=== PATIENT | male | born 1950 | race Caucasian/White ===

== ENCOUNTER 2019-11-25 07:19 | Inpatient (IN) | payer MEDICARE, BC ==
[~2019-11-25] VITALS: Ht 185.4 cm; Wt 65.9 kg
[2019-11-25] VITALS (27 sets, daily range): BP systolic 68–134; BP diastolic 35–72
[2019-11-25 07:59] LABS: BASO % 1 % (0-3); EOS % 0 % (0-3); HEMATOCRIT 37.5 % (39.0-53.0); HEMOGLOBIN 11.3 g/dL (13.0-17.5); LYMPH # 0.7 x10^3/uL (1.0-4.8); LYMPH % 11 % (24-48); MEAN CORPUSCULAR HEMOGLOBIN 28 pg (25-35); MEAN CORPUSCULAR HGB CONC 30 g/dL (31-37); MEAN CORPUSCULAR VOLUME 91 fL (79-100); MONO # 0.4 x10^3/uL (0.0-1.1); MONO % 7 % (0-9); NEUT # 4.9 x10^3/uL (1.8-7.7); NEUT % 81 % (31-73); PLATELET COUNT 137 x10^3/uL (140-400); RED CELL DISTRIBUTION WIDTH 19.6 % (11.5-14.5)
[2019-11-25 08:10] LABS: BASE EXCESS COOX -13 mmol/L (-3-3); HCO3 COOX 18 mmol/L (21-28); METHEMOGLOBIN 0.4 % (0.0-1.9); OXYHEMOGLOBIN 94.9 %; PO2 COOX 115 mmHg (65-108); SAT O2 COOX 96 % (92-99)
[2019-11-25 08:11] LABS: CALCIUM 7.9 mg/dL (8.5-10.1); GFR 9.3; POTASSIUM 5.2 mmol/L (3.5-5.1)
--- NOTE | 2019-11-25 08:24 | RAD ---
EXAM: PORTABLE CHEST 1V INDICATION: Respiratory distress. TECHNIQUE: Single AP view COMPARISON: None FINDINGS: Right chest multichamber pacemaker is present. The heart is enlarged The great vessels show aortic calcification and otherwise appear unremarkable. There is no hilar or mediastinal mass identified. Lungs show central pulmonary vascular congestion. These are more in the left greater than right bilateral perihilar distribution. There is no pleural effusion or pneumothorax. There are no significant osseous abnormalities. IMPRESSION: Pulmonary vascular congestion and cardiomegaly. Findings suspicious for early interstitial edema. Electronically signed by: Narendra Brito MD (11/25/2019 8:21 AM) [id number]
--- NOTE | 2019-11-25 08:26 | EKG ---
[facility] [address] [place] [address] Test Date: 2019-11-25 Test Time: 07:29:31 Pat Name: AMY GOVEA Department: Room: Gender: M Accounts Payable Lead: : 1950 Requested By: QUITA TOMLINSON Order Number: [id number] Reading MD: Measurements Intervals [place] Rate: 66 P: GA: QRS: -67 QRSD: 156 T: 97 QT: 486 QTc: 512 Interpretive Statements IRREGULAR RHYTHM, NO P-WAVE FOUND ABNORMAL LEFT AXIS DEVIATION NON SPECIFIC INTRAVENTRICULAR BLOCK QRS(T) CONTOUR ABNORMALITY CONSISTENT WITH ANTERIOR INFARCT PROBABLY OLD CONSISTENT WITH INFEROLATERAL INFARCT PROBABLY OLD ABNORMAL ECG RI6.01 No previous ECG available for comparison
[2019-11-25 08:27] LABS: ALBUMIN/GLOBULIN RATIO 0.9 (1.0-1.7); TOTAL BILIRUBIN 0.5 mg/dL (0.2-1.0); TOTAL PROTEIN 6.2 g/dL (6.4-8.2)
[2019-11-25 08:34] LABS: INFLUENZA A PATIENT NEGATIVE (NEGATIVE); INFLUENZA B PATIENT NEGATIVE (NEGATIVE)
[2019-11-25 08:35] LABS: PCO2 COOX 67 mmHg (35-46)
--- NOTE | 2019-11-25 08:52 | PHYS DOC ---
Past Medical History Past Medical History: CHF, COPD, Depression, Renal Failure, Vascular Disease Additional Past Medical Histor: Aortic aneurysm repair, on dialysis Past Surgical History: Other Additional Past Surgical Histo: dialysis shunt left arm, aortic aneurysm repair;' right lobectomy Smoking Status: Unknown if ever smoked Alcohol Use: None Adult General Chief Complaint Chief Complaint: SHORTNESS OF BREATH HPI HPI Patient is a 69-year-old chronically ill male with multiple medical problems who presents today with altered mental status and respiratory distress. The patient has not had any fever. Family states that he last had dialysis this past Sunday. He missed dialysis yesterday because he fell and hurt his arm and didn't feel like going. He was scheduled to go today at 2 PM but his symptoms worsened. Patient's family states he normally gets his care at [facility]] Review of Systems Review of Systems Review of systems is unobtainable secondary to altered mental status Current Medications Current Medications Current Medications Medications (Trade) Dose Ordered Sig/Garrick Start Time Stop Time Status Last Admin Dose Admin Calcium Gluconate (Calcium Gluconate) 1,000 mg 1X ONCE 11/25/19 09:00 11/25/19 09:01 DC 11/25/19 09:46 1,000 MG Sodium Bicarbonate (Sodium Bicarb Adult 8.4% Syr) 50 meq 1X ONCE 11/25/19 09:00 11/25/19 09:01 DC 11/25/19 09:46 50 MEQ Allergies Allergies Allergies Coded Allergies Type Severity Reaction Last Updated Verified prednisone Allergy Unknown 11/25/19 Yes vancomycin Allergy Unknown 11/25/19 Yes Physical Exam Physical Exam Constitutional: Frail, elderly and acutely ill[] HENT: Normocephalic, atraumatic, bilateral external ears normal, oropharynx mo ist, no oral exudates, nose normal. [] Eyes: PERRLA, EOMI, conjunctiva normal, no discharge. [] Neck: Obvious jugular venous distention[] Cardiovascular:Heart rate regular rhythm, no murmur pacer left chest [] Lungs & Thorax: Diminished breath sounds with bibasilar rales[] Abdomen: Bowel sounds normal, soft, no tenderness, no masses, no pulsatile masses. [] Skin: Warm, dry, no erythema, no rash. [] Back: No tenderness, no CVA tenderness. [] Extremities: No tenderness, no cyanosis, no clubbing, ROM intact, no edema. [] Neurologic: Alert but confused, normal motor function, normal sensory function, no focal deficits noted. [] Psychologic: Unable to assess. [] Current Patient Data Vital Signs Vital Signs Date Time Temp Pulse Resp B/P (MAP) Pulse Ox O2 Delivery O2 Flow Rate FiO2 11/25/19 09:12 96 BiPAP/CPAP 11/25/19 09:06 62 20 115/61 (79) 11/25/19 08:20 4.0 11/25/19 07:19 97.6 97.6 Lab Values Laboratory Tests Test 11/25/19 07:35 11/25/19 07:39 11/25/19 07:45 White Blood Count 6.0 x10^3/uL (4.0-11.0) Red Blood Count 4.10 x10^6/uL (4.30-5.70) L Hemoglobin 11.3 g/dL (13.0-17.5) L Hematocrit 37.5 % (39.0-53.0) L Mean Corpuscular Volume 91 fL (79-100) Mean Corpuscular Hemoglobin 28 pg (25-35) Mean Corpuscular Hemoglobin Concent 30 g/dL (31-37) L Red Cell Distribution Width 19.6 % (11.5-14.5) H Platelet Count 137 x10^3/uL (140-400) L Neutrophils (%) (Auto) 81 % (31-73) H Lymphocytes (%) (Auto) 11 % (24-48) L Monocytes (%) (Auto) 7 % (0-9) Eosinophils (%) (Auto) 0 % (0-3) Basophils (%) (Auto) 1 % (0-3) Neutrophils # (Auto) 4.9 x10^3/uL (1.8-7.7) Lymphocytes # (Auto) 0.7 x10^3/uL (1.0-4.8) L Monocytes # (Auto) 0.4 x10^3/uL (0.0-1.1) Eosinophils # (Auto) 0.0 x10^3/uL (0.0-0.7) Basophils # (Auto) 0.0 x10^3/uL (0.0-0.2) Sodium Level 142 mmol/L (136-145) Potassium Level 5.2 mmol/L (3.5-5.1) H Chloride Level 103 mmol/L (98-107) Carbon Dioxide Level 23 mmol/L (21-32) Anion Gap 16 (6-14) H Blood Urea Nitrogen 48 mg/dL (8-26) H Creatinine 6.0 mg/dL (0.7-1.3) H Estimated GFR (Cockcroft-Gault) 9.3 BUN/Creatinine Ratio 8 (6-20) Glucose Level 99 mg/dL (70-99) Lactic Acid Level 2.9 mmol/L (0.4-2.0) H Calcium Level 7.9 mg/dL (8.5-10.1) L Total Bilirubin 0.5 mg/dL (0.2-1.0) Aspartate Amino Transferase (AST) 24 U/L (15-37) Alanine Aminotransferase (ALT) 13 U/L (16-63) L Alkaline Phosphatase 134 U/L (46-116) H Troponin I Quantitative 0.113 ng/mL (0.000-0.055) HD-Gjm-M-Type Natriuretic Peptide > 99496 pg/mL (0-124) H Total Protein 6.2 g/dL (6.4-8.2) L Albumin 3.0 g/dL (3.4-5.0) L Albumin/Globulin Ratio 0.9 (1.0-1.7) L Influenza Type A Antigen Negative (NEGATIVE) Influenza Type B Antigen Negative (NEGATIVE) Group A Streptococcus Rapid Negative (NEGATIVE) O2 Saturation 96 % (92-99) Arterial Blood pH 7.05 (7.35-7.45) *L Arterial Blood pCO2 at Patient Temp 67 mmHg (35-46) *H Arterial Blood pO2 at Patient Temp 115 mmHg (65-108) H Arterial Blood HCO3 18 mmol/L (21-28) L Arterial Blood Base Excess -13 mmol/L (-3-3) L Oxyhemoglobin 94.9 % Methemoglobin 0.4 % (0.0-1.9) Carbon Monoxide, Quantitative 1.0 % (0.0-1.9) FiO2 4l n.c. Laboratory Tests 11/25/19 07:35 Laboratory Tests 11/25/19 07:35 EKG EKG [] Interpretation Time: EKG: Paced rhythm rate of 70 Radiology/Procedures Radiology/Procedures []PROCEDURE: PORTABLE CHEST 1V EXAM: PORTABLE CHEST 1V INDICATION: Respiratory distress. TECHNIQUE: Single AP view COMPARISON: None FINDINGS: Right chest multichamber pacemaker is present. The heart is enlarged The great vessels show aortic calcification and otherwise appear unremarkable. There is no hilar or mediastinal mass identified. Lungs show central pulmonary vascular congestion. These are more in the left greater than right bilateral perihilar distribution. There is no pleural effusion or pneumothorax. There are no significant osseous abnormalities. IMPRESSION: Pulmonary vascular congestion and cardiomegaly. Findings suspicious for early interstitial edema. Course & Med Decision Making Course & Med Decision Making Pertinent Labs and Imaging studies reviewed. (See chart for details) [CRITICAL CARE: Time spent was 35 minutes. This includes medical management, evaluation, reevaluation, discussion with consultants and family. Critical Care does NOT include time spent on separately billed procedures. ] Patient was placed on BiPAP 20/6 with a tidal volume of 600. FiO2 30% with excellent response ED course: Evaluation reveals a 69-year-old male who appears critically ill. Patient was placed on BiPAP and he became more responsive. His potassium was slightly elevated and his pH was low he was given an amp of sodium bicarbonate and thousand milligrams of calcium gluconate. I spoke with Dr. Holguin at 9:15 this morning to let him know that we would need an emergent dialysis for this patient. He will be admitted to the ICU for further management. Dragon Disclaimer Dragon Disclaimer This electronic medical record was generated, in whole or in part, using a voice recognition dictation system. Departure Departure Impression: Primary Impression: Acute congestive heart failure Additional Impressions: Respiratory failure Acidosis, metabolic, with respiratory acidosis Acute on chronic renal failure Disposition: ADMITTED INPATIENT Admitting Physician: CAPRICE Condition: CRITICAL Referrals: RADHA LEAL MD (PCP) Problem Qualifiers Primary Impression: Acute congestive heart failure Heart failure type: combined systolic and diastolic Qualified Codes: I50.41 - Acute combined systolic (congestive) and diastolic (congestive) heart failure Additional Impressions: Respiratory failure Chronicity: acute Respiratory failure complication: hypoxia and hypercapnia Qualified Codes: J96.01 - Acute respiratory failure with hypoxia; J96.02 - Acute respiratory failure with hypercapnia Acute on chronic renal failure Acute renal failure type: with other specified pathological lesion Chronic kidney disease stage: on chronic dialysis Qualified Codes: N17.8 - Other acute kidney failure; N18.9 - Chronic kidney disease, unspecified; Z99.2 - Dependence on renal dialysis QUITA TOMLINSON DO Nov 25, 2019 08:52
[2019-11-25] MEDS ORDERED: CALCIUM GLUCONATE 1,000 MG/10 ML VIAL. IVP ONE (09:00)
[2019-11-25] MEDS ORDERED: SODIUM BICARB ADULT 8.4% 50 MEQ/50 ML DISP.SYRIN. IV ONE (09:00)
[2019-11-25] MEDS ORDERED: NOREPINEPHRINE VIAL 8 MG in IV DEXTROSE 5% 250 ML IV ONE (09:30)
[2019-11-25] MEDS ORDERED: DIALYSIS PATIENT. MC PRN ×2 (10:15)
--- NOTE | 2019-11-25 11:00 | NUR ---
Rec'd from ER per cart. Pt arousable and able to state name and date and khew he was in hospital thought it was [facility]. On low dose Levo, PIV patent. Lt arm dialysis fistula present with bruit. inspector and clerk here to start dialysis. SR with BBB. No family here at this time. Will call them for med list. Afebrile. On Bipap 30% with mask a fair fit. Pt compliant with Mask.
[2019-11-25] MEDS: IPRATRPIUM/ALBUTEROL 0.5/2.5MG 3 ML NEBU. NEB SCH ×3 (11:46→19:57)
--- NOTE | 2019-11-25 11:49 | PDOC2 ---
CONSULT Date of Consult Date of Consult DATE: 11/25/19 TIME: 11:43 Reason for Consult Reason for Consult: ESRD AND SOB Referring Physician Referring Physician: GRZEGORZ Identification/Chief Complaint Chief Complaint SOB Source Source: Chart review History of Present Illness Reason for Visit: THIS IS A 69 YR OLD ESRD PT WITH SOB. HE IS ALSO CONFUSED. PT HAS HX OF ESRD ON OP HD ON MWF. HAS SKIPPED HIS TX ON SUNDAY AND SUNDAY. LABS ARE C/W ESRD. CURRENTLY HYPOXIC AND IMAGING C/W PULMONARY VASCULAR CONGESTION. HE HAS HD VIA A LEFT ARM AVF. CURRENTLY UNABLE TO GIVE ANY HX DUE TO RESP DISTRESS Past Medical History Past Medical History PAD Cardiovascular: CHF, HTN GI: Constipation Heme/Onc: Anemia NOS Renal/: Chronic renal failure Endocrine: Hyperparathyroidism Past Surgical History Past Surgical History AAA REPAIR, LEFT ARM AVF Social History No ALCOHOL: none Drugs: None Lives: with Family Current Problem List Problem List Problems Medical Problems: (1) Acidosis, metabolic, with respiratory acidosis Status: Acute (2) Acute congestive heart failure Status: Acute (3) Acute on chronic renal failure Status: Acute (4) Respiratory failure Status: Acute Current Medications Current Medications Current Medications Sodium Bicarbonate (Sodium Bicarb Adult 8.4% Syr) 50 meq 1X ONCE IV Last administered on 11/25/19at 09:46; Start 11/25/19 at 09:00; Stop 11/25/19 at 09:01; Status DC Calcium Gluconate (Calcium Gluconate) 1,000 mg 1X ONCE IVP Last administered on 11/25/19at 09:46; Start 11/25/19 at 09:00; Stop 11/25/19 at 09:01; Status DC Norepinephrine Bitartrate 8 mg/ Dextrose 258 ml @ 13.545 mls/ hr 1X ONCE IV Last administered on 11/25/19at 09:48; Start 11/25/19 at 09:30; Stop 11/26/19 at 04:32 Albuterol/ Ipratropium (Duoneb) 3 ml RTQID NEB ; Start 11/25/19 at 12:00; Stop 11/26/19 at 11:59 Info (PHARMACY MONITORING -- do not chart) 1 each PRN DAILY PRN MC SEE COMMENTS; Start 11/25/19 at 10:15 Info (PHARMACY MONITORING -- do not chart) 1 each PRN DAILY PRN MC SEE COMMENTS; Start 11/25/19 at 10:15; Status UNV Allergies Allergies: Coded Allergies: prednisone (Verified Allergy, Unknown, 11/25/19) vancomycin (Verified Allergy, Unknown, 11/25/19) ROS Review of System UNABLE TO OBTAIN Physical Exam General: moderate distress HEENT: Atraumatic Lungs: Other (BASILAR RALES) Heart: Regular rate Abdomen: Normal bowel sounds Extremities: No clubbing Skin: No breakdown Neuro: Other (CONFUSED) Psych/Mental Status: Other (CONFUSED) MUSCULOSKELETAL: Other (LEFT ARM AVF WITH GOOD THRILL AND BRUITS) Vitals VITALS Vital Signs Date Time Temp Pulse Resp B/P (MAP) Pulse Ox O2 Delivery O2 Flow Rate FiO2 11/25/19 10:06 64 20 81/45 (57) 99 Room Air 11/25/19 08:20 4.0 11/25/19 07:19 97.6 97.6 Labs Labs Laboratory Tests Test 11/25/19 07:35 11/25/19 07:39 11/25/19 07:45 White Blood Count 6.0 x10^3/uL (4.0-11.0) Red Blood Count 4.10 x10^6/uL (4.30-5.70) Hemoglobin 11.3 g/dL (13.0-17.5) Hematocrit 37.5 % (39.0-53.0) Mean Corpuscular Volume 91 fL (79-100) Mean Corpuscular Hemoglobin 28 pg (25-35) Mean Corpuscular Hemoglobin Concent 30 g/dL (31-37) Red Cell Distribution Width 19.6 % (11.5-14.5) Platelet Count 137 x10^3/uL (140-400) Neutrophils (%) (Auto) 81 % (31-73) Lymphocytes (%) (Auto) 11 % (24-48) Monocytes (%) (Auto) 7 % (0-9) Eosinophils (%) (Auto) 0 % (0-3) Basophils (%) (Auto) 1 % (0-3) Neutrophils # (Auto) 4.9 x10^3/uL (1.8-7.7) Lymphocytes # (Auto) 0.7 x10^3/uL (1.0-4.8) Monocytes # (Auto) 0.4 x10^3/uL (0.0-1.1) Eosinophils # (Auto) 0.0 x10^3/uL (0.0-0.7) Basophils # (Auto) 0.0 x10^3/uL (0.0-0.2) Sodium Level 142 mmol/L (136-145) Potassium Level 5.2 mmol/L (3.5-5.1) Chloride Level 103 mmol/L (98-107) Carbon Dioxide Level 23 mmol/L (21-32) Anion Gap 16 (6-14) Blood Urea Nitrogen 48 mg/dL (8-26) Creatinine 6.0 mg/dL (0.7-1.3) Estimated GFR (Cockcroft-Gault) 9.3 BUN/Creatinine Ratio 8 (6-20) Glucose Level 99 mg/dL (70-99) Lactic Acid Level 2.9 mmol/L (0.4-2.0) Calcium Level 7.9 mg/dL (8.5-10.1) Total Bilirubin 0.5 mg/dL (0.2-1.0) Aspartate Amino Transf (AST/SGOT) 24 U/L (15-37) Alanine Aminotransferase (ALT/SGPT) 13 U/L (16-63) Alkaline Phosphatase 134 U/L (46-116) Troponin I Quantitative 0.113 ng/mL (0.000-0.055) NT-Opf-F-Type Natriuretic Peptide > 32387 pg/mL (0-124) Total Protein 6.2 g/dL (6.4-8.2) Albumin 3.0 g/dL (3.4-5.0) Albumin/Globulin Ratio 0.9 (1.0-1.7) Influenza Type A Antigen Negative (NEGATIVE) Influenza Type B Antigen Negative (NEGATIVE) Group A Streptococcus Rapid Negative (NEGATIVE) O2 Saturation 96 % (92-99) Arterial Blood pH 7.05 (7.35-7.45) Arterial Blood pCO2 at Patient Temp 67 mmHg (35-46) Arterial Blood pO2 at Patient Temp 115 mmHg (65-108) Arterial Blood HCO3 18 mmol/L (21-28) Arterial Blood Base Excess -13 mmol/L (-3-3) Oxyhemoglobin 94.9 % Methemoglobin 0.4 % (0.0-1.9) Carbon Monoxide, Quantitative 1.0 % (0.0-1.9) FiO2 4l n.c. Laboratory Tests Test 11/25/19 07:35 11/25/19 07:39 11/25/19 07:45 White Blood Count 6.0 x10^3/uL (4.0-11.0) Red Blood Count 4.10 x10^6/uL (4.30-5.70) Hemoglobin 11.3 g/dL (13.0-17.5) Hematocrit 37.5 % (39.0-53.0) Mean Corpuscular Volume 91 fL (79-100) Mean Corpuscular Hemoglobin 28 pg (25-35) Mean Corpuscular Hemoglobin Concent 30 g/dL (31-37) Red Cell Distribution Width 19.6 % (11.5-14.5) Platelet Count 137 x10^3/uL (140-400) Neutrophils (%) (Auto) 81 % (31-73) Lymphocytes (%) (Auto) 11 % (24-48) Monocytes (%) (Auto) 7 % (0-9) Eosinophils (%) (Auto) 0 % (0-3) Basophils (%) (Auto) 1 % (0-3) Neutrophils # (Auto) 4.9 x10^3/uL (1.8-7.7) Lymphocytes # (Auto) 0.7 x10^3/uL (1.0-4.8) Monocytes # (Auto) 0.4 x10^3/uL (0.0-1.1) Eosinophils # (Auto) 0.0 x10^3/uL (0.0-0.7) Basophils # (Auto) 0.0 x10^3/uL (0.0-0.2) Sodium Level 142 mmol/L (136-145) Potassium Level 5.2 mmol/L (3.5-5.1) Chloride Level 103 mmol/L (98-107) Carbon Dioxide Level 23 mmol/L (21-32) Anion Gap 16 (6-14) Blood Urea Nitrogen 48 mg/dL (8-26) Creatinine 6.0 mg/dL (0.7-1.3) Estimated GFR (Cockcroft-Gault) 9.3 BUN/Creatinine Ratio 8 (6-20) Glucose Level 99 mg/dL (70-99) Lactic Acid Level 2.9 mmol/L (0.4-2.0) Calcium Level 7.9 mg/dL (8.5-10.1) Total Bilirubin 0.5 mg/dL (0.2-1.0) Aspartate Amino Transf (AST/SGOT) 24 U/L (15-37) Alanine Aminotransferase (ALT/SGPT) 13 U/L (16-63) Alkaline Phosphatase 134 U/L (46-116) Troponin I Quantitative 0.113 ng/mL (0.000-0.055) HN-Asc-N-Type Natriuretic Peptide > 39550 pg/mL (0-124) Total Protein 6.2 g/dL (6.4-8.2) Albumin 3.0 g/dL (3.4-5.0) Albumin/Globulin Ratio 0.9 (1.0-1.7) Influenza Type A Antigen Negative (NEGATIVE) Influenza Type B Antigen Negative (NEGATIVE) Group A Streptococcus Rapid Negative (NEGATIVE) O2 Saturation 96 % (92-99) Arterial Blood pH 7.05 (7.35-7.45) Arterial Blood pCO2 at Patient Temp 67 mmHg (35-46) Arterial Blood pO2 at Patient Temp 115 mmHg (65-108) Arterial Blood HCO3 18 mmol/L (21-28) Arterial Blood Base Excess -13 mmol/L (-3-3) Oxyhemoglobin 94.9 % Methemoglobin 0.4 % (0.0-1.9) Carbon Monoxide, Quantitative 1.0 % (0.0-1.9) FiO2 4l n.c. Assessment/Plan Assessment/Plan IMP CHF-ACUTE ON CHRONIC DIASTOLIC CHF ACUTE HYPOXIC RESP FAILURE HYPERKALEMIA ANEMIA HTN ESRD NON COMPLIANCE PLAN HD TODAY UF TOLERATED ESTRELLITA TO STARTED CONSIDER ANTIBIOTICS ENC COMPLIANCE WILL FOLLOW KATHRIN BOUCHER MD Nov 25, 2019 11:49
--- NOTE | 2019-11-25 14:11 | HP ---
ADMIT DATE: 11/25/2019 CHIEF COMPLAINT: Confusion and shortness of breath. HISTORY OF PRESENT ILLNESS: The patient is a pleasant 69-year-old male who presented with shortness of breath and confusion. While in the ER, we noticed that he is hyperkalemic with a potassium of 5.2. He was also severely acidotic with a pH of 7.05. We placed him on BiPAP. I discussed the case with ER physician. It appears that the patient is in acute heart failure. He has a BNP of 35,000. He is going to the ICU. We have consulted Nephrology. PAST MEDICAL HISTORY: End-stage renal disease, on dialysis; COPD; CHF; depression; vascular disease; aortic aneurysm; dialysis shunt; and right lobectomy. ALLERGIES: PREDNISONE AND VANCOMYCIN. FAMILY HISTORY: Diabetes. SOCIAL HISTORY: He quit smoking. No drinking. No drugs. MEDICATIONS: Reviewed. Please refer to the MRAD. REVIEW OF SYSTEMS: Unable to obtain. The patient is on BiPAP. PHYSICAL EXAMINATION: VITALS: Within normal limits and are stable. GENERAL: No apparent distress. Alert and oriented. HEENT: Normal cephalic atraumatic, external auditory canals are patent EYES: Extraocular muscles are intact, pupils are equally round and reactive to light and accommodation MUSCULOSKELETAL: Well developed, well nourished, good range of motion ENDOCRINE: No thyromegaly was palpated LYMPHATICS: No cervical chain or axillary nodes were noted HEMATOPOIETIC: No bruising NECK: Supple, no JVD, no thyromegaly was noted. PULMONARY: The patient is on BiPAP. He has diffuse wheezing. HEART: RRR, S1, S2 present. Peripheral pulses intact, no obvious murmurs were noted. ABDOMEN: Soft, nontender. Positive bowel sounds no organomegaly, normal bowel sounds. EXTREMITIES: Without any cyanosis, clubbing, or edema. Pedal pulses intact, Homans sign is negative. NEUROLOGICAL: He is unable to respond. PSYCHIATRIC: Normal affect, normal mood. Stable. SKIN: No ulcerations or rashes, good skin turgor, no jaundice. VASCULAR: Good capillary refill, neurovascular bundle appears to be intact. LABORATORY DATA: PH of 7.05. Potassium 5.2, BUN 48, and creatinine 6.1. ASSESSMENT AND PLAN: Volume overload, congestive heart failure, respiratory failure, hyperkalemia, and combination of anion gap metabolic acidosis and respiratory acidosis. The patient has been admitted to the ICU. We have consulted Nephrology. He is going to get dialyzed. Home meds and DVT prophylaxis. Full code. Trend labs. PROGNOSIS: Guarded. TIFFANIE LANTIGUA DO DR: RADHAMES/jordyn JOB#: [id number] / [id number]
--- NOTE | 2019-11-25 15:00 | NUR ---
Dialysis complete w/o diff. Took off 3.5 Kg. remains on low dose Levo. Pt feqested Bipap mask to be off for a while. Done and mask replaced. Pt is very RINCON but still arousable. Waiting for family to call back. Consult for Dr Zarate called.
--- NOTE | 2019-11-25 17:09 | PDOC ---
PULMONARY PROGRESS NOTES Vitals Vital Signs Date Time Temp Pulse Resp B/P (MAP) Pulse Ox O2 Delivery O2 Flow Rate FiO2 11/25/19 15:28 67 20 113/57 (75) BiPAP/CPAP 11/25/19 15:20 100 11/25/19 11:15 97.6 97.6 11/25/19 08:20 4.0 Labs Laboratory Tests Test 11/25/19 07:35 11/25/19 07:39 11/25/19 07:45 11/25/19 11:35 White Blood Count 6.0 x10^3/uL (4.0-11.0) Red Blood Count 4.10 x10^6/uL (4.30-5.70) Hemoglobin 11.3 g/dL (13.0-17.5) Hematocrit 37.5 % (39.0-53.0) Mean Corpuscular Volume 91 fL (79-100) Mean Corpuscular Hemoglobin 28 pg (25-35) Mean Corpuscular Hemoglobin Concent 30 g/dL (31-37) Red Cell Distribution Width 19.6 % (11.5-14.5) Platelet Count 137 x10^3/uL (140-400) Neutrophils (%) (Auto) 81 % (31-73) Lymphocytes (%) (Auto) 11 % (24-48) Monocytes (%) (Auto) 7 % (0-9) Eosinophils (%) (Auto) 0 % (0-3) Basophils (%) (Auto) 1 % (0-3) Neutrophils # (Auto) 4.9 x10^3/uL (1.8-7.7) Lymphocytes # (Auto) 0.7 x10^3/uL (1.0-4.8) Monocytes # (Auto) 0.4 x10^3/uL (0.0-1.1) Eosinophils # (Auto) 0.0 x10^3/uL (0.0-0.7) Basophils # (Auto) 0.0 x10^3/uL (0.0-0.2) Sodium Level 142 mmol/L (136-145) Potassium Level 5.2 mmol/L (3.5-5.1) Chloride Level 103 mmol/L (98-107) Carbon Dioxide Level 23 mmol/L (21-32) Anion Gap 16 (6-14) Blood Urea Nitrogen 48 mg/dL (8-26) Creatinine 6.0 mg/dL (0.7-1.3) Estimated GFR (Cockcroft-Gault) 9.3 BUN/Creatinine Ratio 8 (6-20) Glucose Level 99 mg/dL (70-99) Lactic Acid Level 2.9 mmol/L (0.4-2.0) 1.1 mmol/L (0.4-2.0) Calcium Level 7.9 mg/dL (8.5-10.1) Total Bilirubin 0.5 mg/dL (0.2-1.0) Aspartate Amino Transf (AST/SGOT) 24 U/L (15-37) Alanine Aminotransferase (ALT/SGPT) 13 U/L (16-63) Alkaline Phosphatase 134 U/L (46-116) Troponin I Quantitative 0.113 ng/mL (0.000-0.055) LV-Ewf-V-Type Natriuretic Peptide > 51503 pg/mL (0-124) Total Protein 6.2 g/dL (6.4-8.2) Albumin 3.0 g/dL (3.4-5.0) Albumin/Globulin Ratio 0.9 (1.0-1.7) Influenza Type A Antigen Negative (NEGATIVE) Influenza Type B Antigen Negative (NEGATIVE) Group A Streptococcus Rapid Negative (NEGATIVE) O2 Saturation 96 % (92-99) Arterial Blood pH 7.05 (7.35-7.45) Arterial Blood pCO2 at Patient Temp 67 mmHg (35-46) Arterial Blood pO2 at Patient Temp 115 mmHg (65-108) Arterial Blood HCO3 18 mmol/L (21-28) Arterial Blood Base Excess -13 mmol/L (-3-3) Oxyhemoglobin 94.9 % Methemoglobin 0.4 % (0.0-1.9) Carbon Monoxide, Quantitative 1.0 % (0.0-1.9) FiO2 4l n.c. Laboratory Tests Test 11/25/19 07:35 11/25/19 07:39 11/25/19 07:45 11/25/19 11:35 White Blood Count 6.0 x10^3/uL (4.0-11.0) Red Blood Count 4.10 x10^6/uL (4.30-5.70) Hemoglobin 11.3 g/dL (13.0-17.5) Hematocrit 37.5 % (39.0-53.0) Mean Corpuscular Volume 91 fL (79-100) Mean Corpuscular Hemoglobin 28 pg (25-35) Mean Corpuscular Hemoglobin Concent 30 g/dL (31-37) Red Cell Distribution Width 19.6 % (11.5-14.5) Platelet Count 137 x10^3/uL (140-400) Neutrophils (%) (Auto) 81 % (31-73) Lymphocytes (%) (Auto) 11 % (24-48) Monocytes (%) (Auto) 7 % (0-9) Eosinophils (%) (Auto) 0 % (0-3) Basophils (%) (Auto) 1 % (0-3) Neutrophils # (Auto) 4.9 x10^3/uL (1.8-7.7) Lymphocytes # (Auto) 0.7 x10^3/uL (1.0-4.8) Monocytes # (Auto) 0.4 x10^3/uL (0.0-1.1) Eosinophils # (Auto) 0.0 x10^3/uL (0.0-0.7) Basophils # (Auto) 0.0 x10^3/uL (0.0-0.2) Sodium Level 142 mmol/L (136-145) Potassium Level 5.2 mmol/L (3.5-5.1) Chloride Level 103 mmol/L (98-107) Carbon Dioxide Level 23 mmol/L (21-32) Anion Gap 16 (6-14) Blood Urea Nitrogen 48 mg/dL (8-26) Creatinine 6.0 mg/dL (0.7-1.3) Estimated GFR (Cockcroft-Gault) 9.3 BUN/Creatinine Ratio 8 (6-20) Glucose Level 99 mg/dL (70-99) Lactic Acid Level 2.9 mmol/L (0.4-2.0) 1.1 mmol/L (0.4-2.0) Calcium Level 7.9 mg/dL (8.5-10.1) Total Bilirubin 0.5 mg/dL (0.2-1.0) Aspartate Amino Transf (AST/SGOT) 24 U/L (15-37) Alanine Aminotransferase (ALT/SGPT) 13 U/L (16-63) Alkaline Phosphatase 134 U/L (46-116) Troponin I Quantitative 0.113 ng/mL (0.000-0.055) WH-Kot-P-Type Natriuretic Peptide > 86784 pg/mL (0-124) Total Protein 6.2 g/dL (6.4-8.2) Albumin 3.0 g/dL (3.4-5.0) Albumin/Globulin Ratio 0.9 (1.0-1.7) Influenza Type A Antigen Negative (NEGATIVE) Influenza Type B Antigen Negative (NEGATIVE) Group A Streptococcus Rapid Negative (NEGATIVE) O2 Saturation 96 % (92-99) Arterial Blood pH 7.05 (7.35-7.45) Arterial Blood pCO2 at Patient Temp 67 mmHg (35-46) Arterial Blood pO2 at Patient Temp 115 mmHg (65-108) Arterial Blood HCO3 18 mmol/L (21-28) Arterial Blood Base Excess -13 mmol/L (-3-3) Oxyhemoglobin 94.9 % Methemoglobin 0.4 % (0.0-1.9) Carbon Monoxide, Quantitative 1.0 % (0.0-1.9) FiO2 4l n.c. Impression . FULL NOTE DICTATED SEE ORDERS THANKS MULU PAREDES MD Nov 25, 2019 17:09
[2019-11-25] MEDS ORDERED: ALBUTEROL SULFATE 2.5 MG/3 ML NEBU. NEB PRN (17:30)
[2019-11-25] MEDS ORDERED: VANCOMYCIN PER PHARMACY MC PRN (17:30)
[2019-11-25] MEDS ORDERED: PIP/TAZO PER PHARMACY MC PRN (17:30)
[2019-11-25] MEDS ORDERED: MIDO10TA PO (18:34)
[2019-11-25] MEDS ORDERED: SERT100T PO (18:34)
[2019-11-25] MEDS ORDERED: AMIO200T4 PO (18:34)
[2019-11-25] MEDS ORDERED: ALPR0.5T6 PO (18:34)
[2019-11-25] MEDS ORDERED: MORP15TA PO (18:34)
[2019-11-25] MEDS ORDERED: WARF2.5T71 PO (18:34)
[2019-11-25] MEDS ORDERED: CLOP75TA PO (18:34)
[2019-11-25] MEDS ORDERED: METO50TA6 PO (18:34)
[2019-11-25] MEDS: PIPERACILLIN/TAZOBACTAM 2.25 GM in IV NORMAL SALINE 50ML 50 ML IV SCH ×2 (19:25→23:15)
[2019-11-25] MEDS ORDERED: DARBEPOETIN ALFA 60 MCG/0.3 ML DISP.SYRIN. SQ SCH (21:00)
--- NOTE | 2019-11-25 21:02 | CONS ---
DATE OF CONSULTATION: 11/25/2019 ATTENDING PHYSICIAN: Dr. Kylee Nelson. CONSULTING PHYSICIAN: Dr. Mulu Zarate. REASON FOR CONSULTATION: The patient seen in pulmonary consultation at the request of Dr. Nelson for acute hypoxemic respiratory failure, severe metabolic acidosis. HISTORY OF PRESENT ILLNESS: The patient is 69-year-old with end-stage renal disease, presented with shortness of breath and encephalopathy. He missed dialysis on several days. He became hypoxic. Chest x-ray revealed bilateral pulmonary infiltrates compatible with CHF. Arterial blood gas revealed a combination of metabolic and hypercapnic respiratory failure, pH of 7.05, PaCO2 of 67, pO2 of 115. The patient was placed in the Intensive Care Unit. He is currently on BiPAP. He has been seen by Dr. Olvera from the Nephrology Service. He is due to undergo hemodialysis. PAST MEDICAL HISTORY: Otherwise remarkable for end-stage renal disease, on hemodialysis; hypertension; chronic heart failure; peripheral arterial disease; chronic constipation; hyperparathyroidism. PAST SURGICAL HISTORY: Status post abdominal aortic aneurysm repair. He has had a left arm AV fistula. SOCIAL HISTORY: There is no history of tobacco or alcohol. REVIEW OF SYSTEMS: Unobtainable secondary to the patient's condition. CURRENT MEDICATIONS: List was reviewed. PHYSICAL EXAMINATION: GENERAL: The patient was on BiPAP in the Intensive Care Unit, arousable, following some commands. NECK: Jugular venous distention could not be assessed secondary to body habitus. CHEST: Full expansion. LUNGS: Crackles throughout both lung saucedo. CARDIOVASCULAR: Regular rate and rhythm with S1, S2, no S3. ABDOMEN: Soft, nontender, nondistended. EXTREMITIES: No clubbing or cyanosis. Evidence of peripheral arterial disease. LABORATORY DATA: Reviewed. White count was normal. Hemoglobin and hematocrit noted. Serology for influenza was negative. Gram A strep rapid was negative. Electrolytes were deranged. BUN and creatinine was elevated. Troponin level was elevated. Albumin was low. Lactic acid level initially elevated, now down to 1.1. IMPRESSION: 1. Acute on chronic hypoxemic hypercapnic respiratory failure. 2. Acute metabolic acidosis related to renal failure. 3. End-stage renal disease, on hemodialysis; the patient missed 2 dialysis. 4. Acute on chronic heart failure. 5. Peripheral arterial disease. 6. Metabolic encephalopathy. 7. Chronic anemia. PLAN: 1. The patient to undergo hemodialysis. 2. Continue support with BiPAP. 3. Empiric antibiotics. 4. Follow chest x-ray. 5. Suspect abnormal x-ray related mostly to congestive heart failure. With that being said, we will initiate empiric antibiotics. I do appreciate the privilege in sharing in the patient's care. MULU ZARATE MD DR: LUCINA/jordyn JOB#: [id number] / [id number]
[2019-11-26] VITALS (19 sets, daily range): BP systolic 56–161; BP diastolic 30–76
[2019-11-26 05:08] LABS: HEMOGLOBIN 11.9 g/dL (13.0-17.5); RED BLOOD COUNT 4.37 x10^6/uL (4.30-5.70); RED CELL DISTRIBUTION WIDTH 19.4 % (11.5-14.5); WHITE BLOOD COUNT 8.2 x10^3/uL (4.0-11.0)
[2019-11-26] MEDS: PIPERACILLIN/TAZOBACTAM 2.25 GM in IV NORMAL SALINE 50ML 50 ML IV SCH ×3 (05:26→21:38)
[2019-11-26 05:59] LABS: CREATININE 4.5 mg/dL (0.7-1.3); POTASSIUM 3.8 mmol/L (3.5-5.1)
[2019-11-26] MEDS ORDERED: IV NORMAL SALINE 1000ML BAG 1,000 ML IV PRN ×2 (07:32)
[2019-11-26] MEDS ORDERED: diphenhydrAMINE 50 MG/ML VIAL IV PRN ×2 (07:45)
[2019-11-26] MEDS ORDERED: DIALYSIS PATIENT. MC PRN (07:45)
[2019-11-26] MEDS: IPRATRPIUM/ALBUTEROL 0.5/2.5MG 3 ML NEBU. NEB SCH ×4 (08:18→20:00)
--- NOTE | 2019-11-26 08:25 | PDOC ---
PULMONARY PROGRESS NOTES Subjective PT OFF BIPAP NOT STILL SOA NO INCREASE COUGH Vitals Vital Signs Date Time Temp Pulse Resp B/P (MAP) Pulse Ox O2 Delivery O2 Flow Rate FiO2 11/26/19 08:18 100 BiPAP/CPAP 11/26/19 08:00 98.6 60 22 161/76 (104) 98.6 11/26/19 05:02 30.0 ROS: No Nausea, No Chest Pain, No Abdominal Pain, No Increase Cough General: Alert Lungs: Wheezing, Crackles Cardiovascular: S1, S2 Abdomen: Soft Neuro Exam: Alert Extremities: No Edema Skin: Warm Labs Laboratory Tests Test 11/25/19 07:35 11/25/19 07:39 11/25/19 07:45 11/25/19 11:35 White Blood Count 6.0 x10^3/uL (4.0-11.0) Red Blood Count 4.10 x10^6/uL (4.30-5.70) Hemoglobin 11.3 g/dL (13.0-17.5) Hematocrit 37.5 % (39.0-53.0) Mean Corpuscular Volume 91 fL (79-100) Mean Corpuscular Hemoglobin 28 pg (25-35) Mean Corpuscular Hemoglobin Concent 30 g/dL (31-37) Red Cell Distribution Width 19.6 % (11.5-14.5) Platelet Count 137 x10^3/uL (140-400) Neutrophils (%) (Auto) 81 % (31-73) Lymphocytes (%) (Auto) 11 % (24-48) Monocytes (%) (Auto) 7 % (0-9) Eosinophils (%) (Auto) 0 % (0-3) Basophils (%) (Auto) 1 % (0-3) Neutrophils # (Auto) 4.9 x10^3/uL (1.8-7.7) Lymphocytes # (Auto) 0.7 x10^3/uL (1.0-4.8) Monocytes # (Auto) 0.4 x10^3/uL (0.0-1.1) Eosinophils # (Auto) 0.0 x10^3/uL (0.0-0.7) Basophils # (Auto) 0.0 x10^3/uL (0.0-0.2) Sodium Level 142 mmol/L (136-145) Potassium Level 5.2 mmol/L (3.5-5.1) Chloride Level 103 mmol/L (98-107) Carbon Dioxide Level 23 mmol/L (21-32) Anion Gap 16 (6-14) Blood Urea Nitrogen 48 mg/dL (8-26) Creatinine 6.0 mg/dL (0.7-1.3) Estimated GFR (Cockcroft-Gault) 9.3 BUN/Creatinine Ratio 8 (6-20) Glucose Level 99 mg/dL (70-99) Lactic Acid Level 2.9 mmol/L (0.4-2.0) 1.1 mmol/L (0.4-2.0) Calcium Level 7.9 mg/dL (8.5-10.1) Total Bilirubin 0.5 mg/dL (0.2-1.0) Aspartate Amino Transf (AST/SGOT) 24 U/L (15-37) Alanine Aminotransferase (ALT/SGPT) 13 U/L (16-63) Alkaline Phosphatase 134 U/L (46-116) Troponin I Quantitative 0.113 ng/mL (0.000-0.055) OR-Khw-Q-Type Natriuretic Peptide > 65435 pg/mL (0-124) Total Protein 6.2 g/dL (6.4-8.2) Albumin 3.0 g/dL (3.4-5.0) Albumin/Globulin Ratio 0.9 (1.0-1.7) Influenza Type A Antigen Negative (NEGATIVE) Influenza Type B Antigen Negative (NEGATIVE) Group A Streptococcus Rapid Negative (NEGATIVE) O2 Saturation 96 % (92-99) Arterial Blood pH 7.05 (7.35-7.45) Arterial Blood pCO2 at Patient Temp 67 mmHg (35-46) Arterial Blood pO2 at Patient Temp 115 mmHg (65-108) Arterial Blood HCO3 18 mmol/L (21-28) Arterial Blood Base Excess -13 mmol/L (-3-3) Oxyhemoglobin 94.9 % Methemoglobin 0.4 % (0.0-1.9) Carbon Monoxide, Quantitative 1.0 % (0.0-1.9) FiO2 4l n.c. Test 11/26/19 04:45 White Blood Count 8.2 x10^3/uL (4.0-11.0) Red Blood Count 4.37 x10^6/uL (4.30-5.70) Hemoglobin 11.9 g/dL (13.0-17.5) Hematocrit 38.0 % (39.0-53.0) Mean Corpuscular Volume 87 fL (79-100) Mean Corpuscular Hemoglobin 27 pg (25-35) Mean Corpuscular Hemoglobin Concent 31 g/dL (31-37) Red Cell Distribution Width 19.4 % (11.5-14.5) Platelet Count 153 x10^3/uL (140-400) Prothrombin Time 18.0 SEC (11.7-14.0) Prothromb Time International Ratio 1.5 (0.8-1.1) Sodium Level 141 mmol/L (136-145) Potassium Level 3.8 mmol/L (3.5-5.1) Chloride Level 98 mmol/L (98-107) Carbon Dioxide Level 30 mmol/L (21-32) Anion Gap 13 (6-14) Blood Urea Nitrogen 31 mg/dL (8-26) Creatinine 4.5 mg/dL (0.7-1.3) Estimated GFR (Cockcroft-Gault) 13.0 Glucose Level 98 mg/dL (70-99) Calcium Level 8.0 mg/dL (8.5-10.1) Laboratory Tests Test 11/25/19 11:35 11/26/19 04:45 Lactic Acid Level 1.1 mmol/L (0.4-2.0) White Blood Count 8.2 x10^3/uL (4.0-11.0) Red Blood Count 4.37 x10^6/uL (4.30-5.70) Hemoglobin 11.9 g/dL (13.0-17.5) Hematocrit 38.0 % (39.0-53.0) Mean Corpuscular Volume 87 fL (79-100) Mean Corpuscular Hemoglobin 27 pg (25-35) Mean Corpuscular Hemoglobin Concent 31 g/dL (31-37) Red Cell Distribution Width 19.4 % (11.5-14.5) Platelet Count 153 x10^3/uL (140-400) Prothrombin Time 18.0 SEC (11.7-14.0) Prothromb Time International Ratio 1.5 (0.8-1.1) Sodium Level 141 mmol/L (136-145) Potassium Level 3.8 mmol/L (3.5-5.1) Chloride Level 98 mmol/L (98-107) Carbon Dioxide Level 30 mmol/L (21-32) Anion Gap 13 (6-14) Blood Urea Nitrogen 31 mg/dL (8-26) Creatinine 4.5 mg/dL (0.7-1.3) Estimated GFR (Cockcroft-Gault) 13.0 Glucose Level 98 mg/dL (70-99) Calcium Level 8.0 mg/dL (8.5-10.1) Medications Active Scripts Medications Dose Route/Sig Max Daily Dose Days Date Category Alprazolam 0.5 Mg Tablet Unknown Dose PO BID 11/25/19 Reported Morphine Sulfate 15 Mg Tablet 1 Tab PO BID 11/25/19 Reported Midodrine Hcl 10 Mg Tablet 10 Mg PO 3X/WEEK 11/25/19 Reported Warfarin Sodium 2.5 Mg Tablet 2.5 Mg PO DAILY 11/25/19 Reported Zoloft (Sertraline Hcl) 100 Mg Tablet 1.5 Tab PO DAILY 11/25/19 Reported Clopidogrel (Clopidogrel Bisulfate) 75 Mg Tablet 1 Tab PO DAILY 11/25/19 Reported Metoprolol Tartrate 50 Mg Tablet 1 Tab PO BID 11/25/19 Reported Amiodarone Hcl 200 Mg Tablet 1 Tab PO DAILY 11/25/19 Reported Impression . IMPRESSION: 1. Acute on chronic hypoxemic hypercapnic respiratory failure. 2. Acute metabolic acidosis related to renal failure. 3. End-stage renal disease, on hemodialysis; the patient missed 2 dialysis. 4. Acute on chronic heart failure. 5. Peripheral arterial disease. 6. Metabolic encephalopathy. 7. Chronic anemia. 8. POSSIBLE PNEUMONIA GRAM NEG/GRAM POS Plan . NEGATIVE FLUID BALANCE CONTINUE ANTIBX PRN BIPAP MAY TRANSFER OUT OF ICU REPEAT CXR IN AM IF BETTER WILL DE ESCALATE ANTIBX D/W MULU HINDS MD Nov 26, 2019 08:25
[2019-11-26 08:35] LABS: BASE EXCESS ABG 1 mmol/L (-3-3); HCO3 ABG 27 mmol/L (21-28); PCO2 ABG 49 mmHg (35-46); PO2 ABG 98 mmHg (65-108); SAT O2 ABG 97 % (92-99)
--- NOTE | 2019-11-26 08:36 | NUR ---
Pharmacy Warfarin Dosing Note S:Pharmacy consulted to assist with anticoagulation therapy started with target INR: 2 -3 O:AMY GOVEA is a 69 year old M LABS: Last INR: 1.5 Last HGB: 11.9 Last HCT: 38 Last PLT: 153 Previous Regimen: 2.5 MG daily per outpt medication list Vitamin K given: N Drug Interaction Changes: None A:INR of 1.5 is below desired range. Target range for this patient is: 2 -3 P: Warfarin dose: 2.5 mg Today at 1600 Bridge Therapy: None Next INR due 11/27/19 Pharmacy anticoagulation service will continue to follow. ALEXANDRO GOODRICH RPH, 11/26/19 0836
[2019-11-26 08:37] LABS: FIO2 ABG 30
[2019-11-26] MEDS: NOREPINEPHRINE VIAL 8 MG in IV DEXTROSE 5% 250 ML IV PRN (10:33)
--- NOTE | 2019-11-26 11:33 | PDOC ---
[facility] [facility] PROGRESS NOTE Chief Complaint Chief Complaint Volume overload, congestive heart failure, respiratory failure, hyperkalemia, and combination of anion gap metabolic acidosis and respiratory acidosis End-stage renal disease, on dialysis; COPD; CHF; depression; vascular disease; aortic aneurysm; dialysis shunt; and right lobectomy. History of Present Illness History of Present Illness [id number] Patient seen and examined in the ICU He remains critically ill on BiPAP Discussed with RN Currently on dialysis as I am examining him Chart reviewed Discussed with dialysis nurse as well Vitals/I&O Vitals/I&O: Vital Signs Date Time Temp Pulse Resp B/P (MAP) Pulse Ox O2 Delivery O2 Flow Rate FiO2 11/26/19 08:40 85/42 (56) 11/26/19 08:18 100 BiPAP/CPAP 11/26/19 08:00 98.6 60 22 98.6 11/26/19 05:02 30.0 I & O 11/25/19 11/25/19 11/26/19 15:00 23:00 07:00 Intake Total 756 ml 100 ml Output Total 0 ml 0 ml Balance 756 ml 100 ml Physical Exam General: moderate distress Heart: Regular rate Abdomen: Normal bowel sounds Extremities: No clubbing Skin: No breakdown Labs Labs: Laboratory Tests Test 11/25/19 11:35 11/26/19 04:45 11/26/19 08:20 Lactic Acid Level 1.1 mmol/L (0.4-2.0) White Blood Count 8.2 x10^3/uL (4.0-11.0) Red Blood Count 4.37 x10^6/uL (4.30-5.70) Hemoglobin 11.9 g/dL (13.0-17.5) Hematocrit 38.0 % (39.0-53.0) Mean Corpuscular Volume 87 fL (79-100) Mean Corpuscular Hemoglobin 27 pg (25-35) Mean Corpuscular Hemoglobin Concent 31 g/dL (31-37) Red Cell Distribution Width 19.4 % (11.5-14.5) Platelet Count 153 x10^3/uL (140-400) Prothrombin Time 18.0 SEC (11.7-14.0) Prothromb Time International Ratio 1.5 (0.8-1.1) Sodium Level 141 mmol/L (136-145) Potassium Level 3.8 mmol/L (3.5-5.1) Chloride Level 98 mmol/L (98-107) Carbon Dioxide Level 30 mmol/L (21-32) Anion Gap 13 (6-14) Blood Urea Nitrogen 31 mg/dL (8-26) Creatinine 4.5 mg/dL (0.7-1.3) Estimated GFR (Cockcroft-Gault) 13.0 Glucose Level 98 mg/dL (70-99) Calcium Level 8.0 mg/dL (8.5-10.1) O2 Saturation 97 % (92-99) Arterial Blood pH 7.36 (7.35-7.45) Arterial Blood pCO2 at Patient Temp 49 mmHg (35-46) Arterial Blood pO2 at Patient Temp 98 mmHg (65-108) Arterial Blood HCO3 27 mmol/L (21-28) Arterial Blood Base Excess 1 mmol/L (-3-3) FiO2 30 Assessment and Plan Assessmemt and Plan Problems Medical Problems: (1) Acidosis, metabolic, with respiratory acidosis Status: Acute (2) Acute congestive heart failure Status: Acute (3) Acute on chronic renal failure Status: Acute (4) Respiratory failure Status: Acute Volume overload, congestive heart failure, respiratory failure, hyperkalemia, and combination of anion gap metabolic acidosis and respiratory acidosis End-stage renal disease, on dialysis; COPD; CHF; depression; vascular disease; aortic aneurysm; dialysis shunt; and right lobectomy. Plan Hemodialysis ICU monitoring BiPAP Antibiotics Consult cardiology Pulmonary and nephrology are following Home meds if possible DVT prophylaxis DNR Prognosis extremely guarded He is critically ill Total time 33 minutes Comment Review of Relevant I have reviewed the following items jesse (where applicable) has been applied. Medications: Current Medications Medications (Trade) Dose Ordered Sig/Garrick Route PRN Reason Start Time Stop Time Status Last Admin Dose Admin Albuterol/ Ipratropium (Duoneb) 3 ml RTQID NEB 11/25/19 12:00 11/26/19 11:59 11/26/19 08:18 Darbepoetin Shai (ARANESP for DIALYSIS PTS) 60 mcg WEEKLYHS SQ 11/25/19 21:00 11/25/19 20:49 Piperacillin Sod/ Tazobactam Sod 2.25 gm/Sodium Chloride 50 ml @ 100 mls/hr Q8HRS IV 11/25/19 18:00 11/26/19 10:33 Linezolid/Dextrose 300 ml @ 300 mls/hr Q12HR IV 11/25/19 18:00 11/26/19 10:38 Warfarin Sodium (Coumadin Per Pharmacy) 1 each PRN DAILY PRN MC SEE COMMENTS 11/25/19 18:45 11/26/19 08:35 Norepinephrine Bitartrate 8 mg/ Dextrose 258 ml @ 13.39 mls/ hr CONT PRN IV PER PROTOCOL 11/25/19 20:30 11/26/19 10:33 TIFFANIE LANTIGUA III DO Nov 26, 2019 11:33
--- NOTE | 2019-11-26 11:45 | PDOC2 ---
ADILENE DENNIS [employer] 11/26/19 1145: CARDIAC CONSULT DATE OF CONSULT Date of Consult DATE: 11/26/19 TIME: 11:43 REASON FOR CONSULT Reason for Consult: CHF REFERRING PHYSICIAN Referring Physician: Dr. Nelson SOURCE Source: Chart review HISTORY OF PRESENT ILLNESS HISTORY OF PRESENT ILLNESS This is a 69 yo male who presented secondary to respiratory distress and altered mental status. Is ESRD on HD. Missed dialysis last Sunday and Sunday of this week as he was not feeling well. Was to go to HD today, but was too short of breath so he came to the ED for further evaluation and treatment. PAST MEDICAL HISTORY Cardiovascular: AFIB, CHF, HTN, Other (PAD) Heme/Onc: Anemia NOS Renal/: Chronic renal failure (on HD) PAST SURGICAL HISTORY Past Surgical History AAA repair, left FA AVF Past Surgical History: Pacemaker FAMILY HISTORY Family History: Hypertension SOCIAL HISTORY Smoke: No ALCOHOL: none Drugs: None Lives: with Family CURRENT MEDICATIONS CURRENT MEDICATIONS Current Medications Medications (Trade) Dose Ordered Sig/Garrick Route PRN Reason Start Time Stop Time Status Last Admin Dose Admin Albuterol/ Ipratropium (Duoneb) 3 ml RTQID NEB 11/25/19 12:00 11/26/19 11:59 11/26/19 08:18 Darbepoetin Shai (ARANESP for DIALYSIS PTS) 60 mcg WEEKLYHS SQ 11/25/19 21:00 11/25/19 20:49 Piperacillin Sod/ Tazobactam Sod 2.25 gm/Sodium Chloride 50 ml @ 100 mls/hr Q8HRS IV 11/25/19 18:00 11/26/19 10:33 Linezolid/Dextrose 300 ml @ 300 mls/hr Q12HR IV 11/25/19 18:00 11/26/19 10:38 Warfarin Sodium (Coumadin Per Pharmacy) 1 each PRN DAILY PRN MC SEE COMMENTS 11/25/19 18:45 11/26/19 08:35 Norepinephrine Bitartrate 8 mg/ Dextrose 258 ml @ 13.39 mls/ hr CONT PRN IV PER PROTOCOL 11/25/19 20:30 11/26/19 10:33 ALLERGIES ALLERGIES: Coded Allergies: prednisone (Verified Allergy, Intermediate, 11/25/19) vancomycin (Verified Allergy, Intermediate, 11/25/19) ROS Review of System unobtainable due to condition PHYSICAL EXAM General: Alert, Oriented X3, Cooperative, mild distress HEENT: Atraumatic, Mucous membr. moist/pink Lungs: Other (BiPAP, crackles ) Heart: Regular rate, Other (intermittent AV pacing with underlying SR) Abdomen: Soft, No tenderness Extremities: Other (1+ bilateral LE ) Skin: No significant lesion Neuro: Normal speech, Sensation intact Psych/Mental Status: Mental status NL, Mood NL VITALS/I&O VITALS/I&O: Vital Signs Date Time Temp Pulse Resp B/P (MAP) Pulse Ox O2 Delivery O2 Flow Rate FiO2 11/26/19 08:40 85/42 (56) 11/26/19 08:18 100 BiPAP/CPAP 11/26/19 08:00 98.6 60 22 98.6 11/26/19 05:02 30.0 I & O 11/25/19 11/25/19 11/26/19 15:00 23:00 07:00 Intake Total 756 ml 100 ml Output Total 0 ml 0 ml Balance 756 ml 100 ml LABS Lab: Laboratory Tests Test 11/26/19 04:45 11/26/19 08:20 White Blood Count 8.2 x10^3/uL (4.0-11.0) Red Blood Count 4.37 x10^6/uL (4.30-5.70) Hemoglobin 11.9 g/dL (13.0-17.5) L Hematocrit 38.0 % (39.0-53.0) L Mean Corpuscular Volume 87 fL (79-100) Mean Corpuscular Hemoglobin 27 pg (25-35) Mean Corpuscular Hemoglobin Concent 31 g/dL (31-37) Red Cell Distribution Width 19.4 % (11.5-14.5) H Platelet Count 153 x10^3/uL (140-400) Prothrombin Time 18.0 SEC (11.7-14.0) H Prothrombin Time INR 1.5 (0.8-1.1) H Sodium Level 141 mmol/L (136-145) Potassium Level 3.8 mmol/L (3.5-5.1) # Chloride Level 98 mmol/L (98-107) Carbon Dioxide Level 30 mmol/L (21-32) Anion Gap 13 (6-14) Blood Urea Nitrogen 31 mg/dL (8-26) H Creatinine 4.5 mg/dL (0.7-1.3) H Estimated GFR (Cockcroft-Gault) 13.0 Glucose Level 98 mg/dL (70-99) Calcium Level 8.0 mg/dL (8.5-10.1) L O2 Saturation 97 % (92-99) Arterial Blood pH 7.36 (7.35-7.45) Arterial Blood pCO2 at Patient Temp 49 mmHg (35-46) H Arterial Blood pO2 at Patient Temp 98 mmHg (65-108) Arterial Blood HCO3 27 mmol/L (21-28) Arterial Blood Base Excess 1 mmol/L (-3-3) FiO2 30 Laboratory Tests 11/26/19 04:45 Laboratory Tests 11/26/19 04:45 ASSESSMENT/PLAN ASSESSMENT/PLAN 1. Acute respiratory failure secondary to a/c CHF 2. Acute on chronic CHF secondary to missed HD 3. ESRD on HD, hyperkalemia 4. Mild troponin elevation; 0.1. Most probably type II, demand ischemia secondary to above. CP free 5. PAFIB; Amiodarone for rhythm maintenance. Warfarin for stroke prevention. INR subtherapeutic 6. SSS s/p PPM; intermittent AV pace with underlying SR with 1st degree AVB 7. PAD; on Plavix 8. Hypertension; low end 10. Metabolic encephalopathy Recommendations Fluid offloading with HD BiPAP support Echo to assess LV systolic function Lipids, TSH Trend trop Resume secondary prevention measures Amiodarone for rhythm maintenance Obtain cardiac [facility] Further pending above NEDA LYNCH MD 11/26/19 1523: CARDIAC CONSULT ASSESSMENT/PLAN ASSESSMENT/PLAN Patient seen and examined Acute on chronic systolic heart failure. Fluid management as per hemodialysis. Will check echocardiogram for LV function and obtain old records. Acute respiratory failure as above. End-stage renal disease. Hemodialysis as per the renal service. Minimally elevated troponin. Demand ischemia. Continue as above. Paroxysmal atrial fibrillation. On amiodarone and anticoagulation. Sick sinus syndrome. Pacemaker in place. We'll monitor. Thank you for allowing us to participate in the care of your patient. SONNY,ADILENE MATILDE Nov 26, 2019 11:45 NEDA LYNCH MD Nov 26, 2019 15:23
--- NOTE | 2019-11-26 11:55 | PDOC ---
Renal-Progress Notes Subjective Notes Notes ON BIPAP History of Present Illness Hx of present illness STABLE Vitals Vitals Vital Signs Date Time Temp Pulse Resp B/P (MAP) Pulse Ox O2 Delivery O2 Flow Rate FiO2 11/26/19 08:40 85/42 (56) 11/26/19 08:18 100 BiPAP/CPAP 11/26/19 08:00 98.6 60 22 98.6 11/26/19 05:02 30.0 Weight Weight [ ] I.O. Intake and Output Intake and Output 11/26/19 07:00 Intake Total 856 ml Output Total 0 ml Balance 856 ml Intake IV Total 856 ml Output Urine Total 0 ml Labs Labs Laboratory Tests Test 11/26/19 04:45 11/26/19 08:20 White Blood Count 8.2 x10^3/uL (4.0-11.0) Red Blood Count 4.37 x10^6/uL (4.30-5.70) Hemoglobin 11.9 g/dL (13.0-17.5) Hematocrit 38.0 % (39.0-53.0) Mean Corpuscular Volume 87 fL (79-100) Mean Corpuscular Hemoglobin 27 pg (25-35) Mean Corpuscular Hemoglobin Concent 31 g/dL (31-37) Red Cell Distribution Width 19.4 % (11.5-14.5) Platelet Count 153 x10^3/uL (140-400) Prothrombin Time 18.0 SEC (11.7-14.0) Prothromb Time International Ratio 1.5 (0.8-1.1) Sodium Level 141 mmol/L (136-145) Potassium Level 3.8 mmol/L (3.5-5.1) Chloride Level 98 mmol/L (98-107) Carbon Dioxide Level 30 mmol/L (21-32) Anion Gap 13 (6-14) Blood Urea Nitrogen 31 mg/dL (8-26) Creatinine 4.5 mg/dL (0.7-1.3) Estimated GFR (Cockcroft-Gault) 13.0 Glucose Level 98 mg/dL (70-99) Calcium Level 8.0 mg/dL (8.5-10.1) O2 Saturation 97 % (92-99) Arterial Blood pH 7.36 (7.35-7.45) Arterial Blood pCO2 at Patient Temp 49 mmHg (35-46) Arterial Blood pO2 at Patient Temp 98 mmHg (65-108) Arterial Blood HCO3 27 mmol/L (21-28) Arterial Blood Base Excess 1 mmol/L (-3-3) FiO2 30 Micro Micro Microbiology 11/25/19 Blood Culture - Preliminary, Resulted NO GROWTH AFTER 1 DAY Assessment Assessment IMP CHF-ACUTE ON CHRONIC DIASTOLIC CHF ACUTE HYPOXIC RESP FAILURE HYPERKALEMIA-BETTER ANEMIA HTN ESRD NON COMPLIANCE PLAN HD TODAY UF TOLERATED ESTRELLITA TO STARTED CONSIDER ANTIBIOTICS ENC COMPLIANCE WILL FOLLOW WILL CONSIDER EXTRA TX TOMORROW KATHRIN BOUCHER MD Nov 26, 2019 11:55
[2019-11-26] MEDS ORDERED: WARFARIN 2.5 MG TABLET. PO ONE (16:00)
[2019-11-26] MEDS: METOPROLOL TART IMMED RELEASE 50 MG TABLET. PO SCH (20:21)
[2019-11-27] VITALS (24 sets, daily range): BP systolic 63–154; BP diastolic 39–74
[2019-11-27] MEDS: PIPERACILLIN/TAZOBACTAM 2.25 GM in IV NORMAL SALINE 50ML 50 ML IV SCH ×3 (05:44→22:16)
--- NOTE | 2019-11-27 08:21 | RAD ---
EXAM: PORTABLE CHEST 1V INDICATION: CHF. TECHNIQUE: Single portable semiupright AP view COMPARISON: 11/25/2019 chest x-ray FINDINGS: Right chest dual-chamber MR-compatible pacemaker is redemonstrated. Pacemaker leads alignment patient's chest as well. Mild cardiac enlargement remains present. There is seen on this projection is aortic valve prosthesis. Great vessels again show aortic calcification and tortuosity but also better show mild enlargement of the bilateral pulmonary arteries There is no hilar or mediastinal mass. Lungs show asymmetric increased density at the right infrahilar lung base with diffuse increased interstitial opacities present. There is no pleural effusion or pneumothorax. There are no significant osseous abnormalities. IMPRESSION: Findings of CHF with mild interstitial edema. Electronically signed by: Narendra Brito MD (11/27/2019 8:19 AM) [id number]
[2019-11-27] MEDS: CLOPIDOGREL BISULFATE 75 MG TABLET PO SCH (08:48)
[2019-11-27] MEDS: AMIODARONE HCL 200 MG TABLET. PO SCH (08:49)
[2019-11-27] MEDS: METOPROLOL TART IMMED RELEASE 50 MG TABLET. PO SCH ×2 (08:51→23:19)
--- NOTE | 2019-11-27 09:04 | PDOC ---
PULMONARY PROGRESS NOTES Subjective PT EATING LUNCH NO DISTRESS OFF 02 PT OFF BIPAP NOT STILL SOA NO INCREASE COUGH Vitals Vital Signs Date Time Temp Pulse Resp B/P (MAP) Pulse Ox O2 Delivery O2 Flow Rate FiO2 11/27/19 08:51 61 95/43 11/27/19 08:00 Room Air 11/27/19 08:00 16 98 11/27/19 07:00 97.9 97.9 11/26/19 16:03 2.0 ROS: No Nausea, No Chest Pain, No Abdominal Pain, No Increase Cough General: Alert Lungs: Wheezing, Crackles Cardiovascular: S1, S2 Abdomen: Soft Neuro Exam: Alert Extremities: No Edema Skin: Warm Labs Laboratory Tests Test 11/25/19 11:35 11/26/19 04:45 11/26/19 08:20 11/27/19 07:50 Lactic Acid Level 1.1 mmol/L (0.4-2.0) White Blood Count 8.2 x10^3/uL (4.0-11.0) Red Blood Count 4.37 x10^6/uL (4.30-5.70) Hemoglobin 11.9 g/dL (13.0-17.5) Hematocrit 38.0 % (39.0-53.0) Mean Corpuscular Volume 87 fL (79-100) Mean Corpuscular Hemoglobin 27 pg (25-35) Mean Corpuscular Hemoglobin Concent 31 g/dL (31-37) Red Cell Distribution Width 19.4 % (11.5-14.5) Platelet Count 153 x10^3/uL (140-400) Prothrombin Time 18.0 SEC (11.7-14.0) 18.0 SEC (11.7-14.0) Prothromb Time International Ratio 1.5 (0.8-1.1) 1.5 (0.8-1.1) Sodium Level 141 mmol/L (136-145) Potassium Level 3.8 mmol/L (3.5-5.1) Chloride Level 98 mmol/L (98-107) Carbon Dioxide Level 30 mmol/L (21-32) Anion Gap 13 (6-14) Blood Urea Nitrogen 31 mg/dL (8-26) Creatinine 4.5 mg/dL (0.7-1.3) Estimated GFR (Cockcroft-Gault) 13.0 Glucose Level 98 mg/dL (70-99) Calcium Level 8.0 mg/dL (8.5-10.1) Troponin I Quantitative 0.527 ng/mL (0.000-0.055) Triglycerides Level 136 mg/dL (0-150) Cholesterol Level 171 mg/dL (0-200) LDL Cholesterol, Calculated 110 mg/dL (0-100) VLDL Cholesterol, Calculated 27 mg/dL (0-40) Non-HDL Cholesterol Calculated 137 mg/dL (0-129) HDL Cholesterol 34 mg/dL (40-60) Cholesterol/HDL Ratio 5.0 Thyroid Stimulating Hormone (TSH) 9.730 uIU/mL (0.358-3.74) O2 Saturation 97 % (92-99) Arterial Blood pH 7.36 (7.35-7.45) Arterial Blood pCO2 at Patient Temp 49 mmHg (35-46) Arterial Blood pO2 at Patient Temp 98 mmHg (65-108) Arterial Blood HCO3 27 mmol/L (21-28) Arterial Blood Base Excess 1 mmol/L (-3-3) FiO2 30 Laboratory Tests Test 11/27/19 07:50 Prothrombin Time 18.0 SEC (11.7-14.0) Prothromb Time International Ratio 1.5 (0.8-1.1) Medications Active Scripts Medications Dose Route/Sig Max Daily Dose Days Date Category Alprazolam 0.5 Mg Tablet Unknown Dose PO BID 11/25/19 Reported Morphine Sulfate 15 Mg Tablet 1 Tab PO BID 11/25/19 Reported Midodrine Hcl 10 Mg Tablet 10 Mg PO 3X/WEEK 11/25/19 Reported Warfarin Sodium 2.5 Mg Tablet 2.5 Mg PO DAILY 11/25/19 Reported Zoloft (Sertraline Hcl) 100 Mg Tablet 1.5 Tab PO DAILY 11/25/19 Reported Clopidogrel (Clopidogrel Bisulfate) 75 Mg Tablet 1 Tab PO DAILY 11/25/19 Reported Metoprolol Tartrate 50 Mg Tablet 1 Tab PO BID 11/25/19 Reported Amiodarone Hcl 200 Mg Tablet 1 Tab PO DAILY 11/25/19 Reported Impression . IMPRESSION: 1. Acute on chronic hypoxemic hypercapnic respiratory failure. 2. Acute metabolic acidosis related to renal failure. 3. End-stage renal disease, on hemodialysis; the patient missed 2 dialysis. 4. Acute on chronic heart failure. 5. Peripheral arterial disease. 6. Metabolic encephalopathy. 7. Chronic anemia. 8. HYPOTENSION Plan . BETTER EXCEPT FOR HYPOTENSION CXR NO CHANGE WILL CONTINUE ANTI BX PRN BIPAP HD PER MULU NIX MD Nov 27, 2019 09:04
--- NOTE | 2019-11-27 09:10 | NUR ---
Pharmacy Warfarin Dosing Note S: Pharmacy consulted to assist with anticoagulation therapy O: AMY GOVEA O is a 69 year old M with Atrial Fibrillation LABS: Last INR: 1.5 Last HGB: 11.9 Last HCT: 38 Last PLT: 153 Last dose of 2.5 mg given on 11/26/19 at 1742 Vitamin K given: N Ongoing Drug Interactions: amiodarone, Zosyn A:INR of 1.5 is below desired range. Target range for this patient is: 2 - 3 P: Warfarin dose: 4 mg Today at 1600 Bridge Therapy: None Next INR due 11/28/19 Pharmacy anticoagulation service will continue to follow. [facility], 11/27/19 [id number]
[2019-11-27] MEDS: IPRATRPIUM/ALBUTEROL 0.5/2.5MG 3 ML NEBU. NEB SCH ×4 (09:33→20:35)
--- NOTE | 2019-11-27 11:33 | PDOC ---
[facility] [facility] PROGRESS NOTE Chief Complaint Chief Complaint Volume overload, congestive heart failure, respiratory failure, hyperkalemia, and combination of anion gap metabolic acidosis and respiratory acidosis End-stage renal disease, on dialysis; COPD; CHF; depression; vascular disease; aortic aneurysm; dialysis shunt; and right lobectomy. History of Present Illness History of Present Illness Patient seen and examined in the ICU He is now off BiPAP a little more alert but very weak Discussed with RN He is off of his levo fed now also Patient seen and examined in the ICU He remains critically ill on BiPAP Discussed with RN Currently on dialysis as I am examining him Chart reviewed Discussed with dialysis nurse as well Vitals/I&O Vitals/I&O: Vital Signs Date Time Temp Pulse Resp B/P (MAP) Pulse Ox O2 Delivery O2 Flow Rate FiO2 11/27/19 11:00 97.9 64 16 63/43 (50) 98 Room Air 97.9 11/26/19 16:03 2.0 I & O 11/26/19 11/26/19 11/27/19 15:00 23:00 07:00 Intake Total 1029 ml 50 ml Output Total 0 ml 0 ml 0 ml Balance 0 ml 1029 ml 50 ml Physical Exam General: Alert, Cooperative Heart: Regular rate, Other (intermittent AV pacing with underlying SR) Lungs: Wheezing, Crackles Abdomen: Soft, No tenderness Extremities: Other (1+ bilateral LE ) Skin: No rashes, No significant lesion Labs Labs: Laboratory Tests Test 11/27/19 07:50 Prothrombin Time 18.0 SEC (11.7-14.0) Prothromb Time International Ratio 1.5 (0.8-1.1) Assessment and Plan Assessmemt and Plan Problems Medical Problems: (1) Acidosis, metabolic, with respiratory acidosis Status: Acute (2) Acute congestive heart failure Status: Acute (3) Acute on chronic renal failure Status: Acute (4) Respiratory failure Status: Acute Volume overload, congestive heart failure, respiratory failure, hyperkalemia, and combination of anion gap metabolic acidosis and respiratory acidosis End-stage renal disease, on dialysis; COPD; CHF; depression; vascular disease; aortic aneurysm; dialysis shunt; and right lobectomy. Plan Hemodialysis ICU monitoring BiPAP when necessary Antibiotics Cardiology following Pulmonary and nephrology are following Home meds if possible DVT prophylaxis DNR Prognosis improving Transferred to medical floor Comment Review of Relevant I have reviewed the following items jesse (where applicable) has been applied. Medications: Current Medications Medications (Trade) Dose Ordered Sig/Garrick Route PRN Reason Start Time Stop Time Status Last Admin Dose Admin Warfarin Sodium (Coumadin) 2.5 mg 1X WARF ONCE PO 11/26/19 16:00 11/26/19 16:01 DC 11/26/19 17:42 Albuterol/ Ipratropium (Duoneb) 3 ml RTQID NEB 11/26/19 12:00 11/27/19 09:33 Amiodarone HCl (Cordarone) 200 mg DAILY PO 11/27/19 09:00 11/27/19 08:49 Clopidogrel Bisulfate (Plavix) 75 mg DAILY PO 11/27/19 09:00 11/27/19 08:48 Metoprolol Tartrate (Lopressor) 50 mg BID PO 11/26/19 21:00 11/26/19 20:21 TIFFANIE LANTIGUA III DO Nov 27, 2019 11:33
--- NOTE | 2019-11-27 11:54 | NUR ---
SS following for discharge planning. SS reviewed pt chart and discussed with RN. Pt is from home and is currently on room air. Referral received for "declining at home, daughters taking care of him." PT/OT orders requested as pt will most likely require half-way unit. SS will continue to follow for discharge planning.
--- NOTE | 2019-11-27 12:43 | PDOC ---
Renal-Progress Notes Subjective Notes Notes LESS SOB History of Present Illness Hx of present illness STABLE Vitals Vitals Vital Signs Date Time Temp Pulse Resp B/P (MAP) Pulse Ox O2 Delivery O2 Flow Rate FiO2 11/27/19 11:00 97.9 64 16 63/43 (50) 98 Room Air 97.9 11/26/19 16:03 2.0 Weight Weight [ ] I.O. Intake and Output Intake and Output 11/27/19 06:59 Intake Total 1079 ml Output Total 0 ml Balance 1079 ml Intake Oral 150 ml IV Total 929 ml Output Urine Total 0 ml Labs Labs Laboratory Tests Test 11/27/19 07:50 Prothrombin Time 18.0 SEC (11.7-14.0) Prothromb Time International Ratio 1.5 (0.8-1.1) Micro Micro Microbiology 11/25/19 Blood Culture - Preliminary, Resulted NO GROWTH AFTER 2 DAYS Assessment Assessment IMP CHF-ACUTE ON CHRONIC DIASTOLIC CHF ACUTE HYPOXIC RESP FAILURE HYPERKALEMIA-BETTER ANEMIA HTN ESRD NON COMPLIANCE PLAN HD TODAY UF TOLERATED ESTRELLITA STARTED ENC COMPLIANCE WILL FOLLOW KATHRIN BOUCHER MD Nov 27, 2019 12:43
[2019-11-27] MEDS: NOREPINEPHRINE VIAL 8 MG in IV DEXTROSE 5% 250 ML IV PRN (12:52)
[2019-11-27] MEDS ORDERED: IV NORMAL SALINE 1000ML BAG 1,000 ML IV PRN ×2 (14:01)
[2019-11-27] MEDS ORDERED: ALBUMIN HUMAN 25% 200 ML IV PRN (14:15)
[2019-11-27] MEDS ORDERED: DIALYSIS PATIENT. MC PRN (14:15)
[2019-11-27] MEDS ORDERED: diphenhydrAMINE 50 MG/ML VIAL IV PRN ×2 (14:15)
--- NOTE | 2019-11-27 14:44 | CARD ---
MR#: [id number] Date of Study: 11/27/2019 Ordering Physician: ADILENE DENNIS, Referring Physician: ADILENE DENNIS, Tech: Constance Molina ESTEFANY APPROVED REPORT EXAM: Two-dimensional and M-mode echocardiogram with Doppler and color Doppler. Other Information Quality : Technically Limited Technically limited study due to body habitus. INDICATION Congestive Heart Failure Pacemaker 2D DIMENSIONS Left Atrium(2D)4.6 (1.6-4.0cm)IVSd1.1 (0.7-1.1cm) Aortic Root(2D)2.4 (2.0-3.7cm)LVDd3.6 (3.9-5.9cm) LVOT Diameter2.0 (1.8-2.4cm)PWd1.1 (0.7-1.1cm) LVDs3.1 (2.5-4.0cm)FS (%) 27.0 % SV18.0 mlLVEF(%)55.0 (>50%) Aortic Valve AoV Peak Marcelo.181.9cm/sAoV VTI33.2cm AO Peak GR.13.2mmHgLVOT VTI 23.70cm AO Mean GR.7mmHgAVA (VTI)2.30cm2 AI P 1/2 [id number] Mitral Valve MV E Yoovduwl719.4cm/sMV E Peak Gr.13mmHg MV DECEL [id number] E Mean Gr.7mmHg TDI Lateral E' P. V5.28cm/sMedial E' P. V3.41cm/s E/Lateral E'28.9E/Medial E'44.7 Tricuspid Valve TR P. [id number]/sRAP [id number] TR Peak Gr.[id number] LEFT VENTRICLE The left ventricle is normal size. There is normal left ventricular wall thickness. The left ventricu lar systolic function is normal and the ejection fraction is within normal range. The Ejection Fracti on is 55-60%. Apical motion consistent with pacemaker activation. Transmitral Doppler flow pattern is Grade I-abnormal relaxation pattern. RIGHT VENTRICLE The right ventricle is moderately dilated. The right ventricular systolic function is normal. There i s a pacemaker lead in the right ventricle. ATRIA The left atrium is mildly dilated. The right atrium is mildly dilated. A pacemaker is seen in the rig ht atrium consistent with history. The interatrial septum is intact with no evidence for an atrial se ptal defect or patent foramen ovale as noted on 2-D or Doppler imaging. AORTIC VALVE The aortic valve is not well visualized but appears to be functioning normally by Doppler interrogati on. Doppler and Color Flow revealed mild aortic regurgitation. There is no significant aortic valvula r stenosis. MITRAL VALVE The mitral valve is calcified and displays decreased opening. Mitral annular calcification is severe. There is no evidence of mitral valve prolapse. There is moderate mitral valve stenosis. Calculated m itral valve area is 1.07 cm2 with maximum pressure gradient of 13 mmHg and mean pressure gradient of 7 mmHg. Doppler and Color Flow revealed no mitral valve regurgitation noted. TRICUSPID VALVE The tricuspid valve is normal in structure and function. Doppler and Color Flow revealed mild tricusp id regurgitation. There is moderate pulmonary hypertension. The PA pressure was estimated at 50 mmHg. There is no tricuspid valve stenosis. PULMONIC VALVE The pulmonic valve is not well visualized. Doppler and Color Flow revealed no pulmonic valvular regur gitation. There is no pulmonic valvular stenosis. GREAT VESSELS The aortic root is normal in size. The ascending aorta is not well seen. The IVC was not visualized. PERICARDIAL EFFUSION There is no evidence of significant pericardial effusion. Critical Notification Critical Value: No <Conclusion> The left ventricular systolic function is normal and the ejection fraction is within normal range. Th e Ejection Fraction is 55-60%. Apical motion consistent with pacemaker activation. The right ventricle is moderately dilated. There is a pacemaker lead in the right ventricle. Doppler and Color Flow revealed mild aortic regurgitation. There is moderate mitral valve stenosis. Calculated mitral valve area is 1.07 cm2 with maximum pressu re gradient of 13 mmHg and mean pressure gradient of 7 mmHg. Doppler and Color Flow revealed mild tricuspid regurgitation. There is moderate pulmonary hypertensio n. The PA pressure was estimated at 50 mmHg. Technically very difficult study Signed by : Johny Jimenes, Electronically Approved : 11/27/2019 14:44:28
[2019-11-27] MEDS ORDERED: WARFARIN 4 MG TABLET. PO ONE (16:00)
--- NOTE | 2019-11-27 16:55 | NUR ---
Dialysis completed. pt "kept even" on dialysis run as per nurse. pt tolerated with levophed infusing at 0.01 mcg/kg/min. pt resting quietly in bed. pt denies any pain or discomfort.
--- NOTE | 2019-11-27 17:13 | PDOC ---
PROGRESS NOTES Subjective Subjective Patient seen and examined Objective Objective Vital Signs Date Time Temp Pulse Resp B/P (MAP) Pulse Ox O2 Delivery O2 Flow Rate FiO2 11/27/19 16:00 Room Air 11/27/19 16:00 63 16 90/57 (68) 95 11/27/19 11:00 97.9 97.9 11/26/19 16:03 2.0 Intake and Output 11/27/19 07:00 Intake Total 1079 ml Output Total 0 ml Balance 1079 ml Intake Oral 150 ml IV Total 929 ml Output Urine Total 0 ml Physical Exam Abdomen: Normal bowel sounds Heart: Regular rate General: mild distress Lungs: Other (mildly decreased breath sounds) Assessment Assessment Problems Medical Problems: (1) Acidosis, metabolic, with respiratory acidosis Status: Acute (2) Acute congestive heart failure Status: Acute (3) Acute on chronic renal failure Status: Acute (4) Respiratory failure Status: Acute Acute on chronic systolic heart failure. Fluid management as per hemodialysis. HTN improved today. Hemodialysis run also later today. Echocardiogram shows an ejection fraction of 55-60% with moderate mitral valve stenosis and moderate pulmonary hypertension with a PA P of 50 mmHg. Acute respiratory failure. Improving. Continuing present treatment. End-stage renal disease. Hemodialysis as per the renal service. Minimally elevated troponin. Demand ischemia. Continue as above. Paroxysmal atrial fibrillation. On amiodarone and anticoagulation. Sick sinus syndrome. Pacemaker in place. We'll continue to monitor. Comment Review of Relevant I have reviewed the following items jesse (where applicable) has been applied. Labs Laboratory Tests Test 11/26/19 04:45 11/26/19 08:20 11/27/19 07:50 White Blood Count 8.2 x10^3/uL (4.0-11.0) Red Blood Count 4.37 x10^6/uL (4.30-5.70) Hemoglobin 11.9 g/dL (13.0-17.5) Hematocrit 38.0 % (39.0-53.0) Mean Corpuscular Volume 87 fL (79-100) Mean Corpuscular Hemoglobin 27 pg (25-35) Mean Corpuscular Hemoglobin Concent 31 g/dL (31-37) Red Cell Distribution Width 19.4 % (11.5-14.5) Platelet Count 153 x10^3/uL (140-400) Prothrombin Time 18.0 SEC (11.7-14.0) 18.0 SEC (11.7-14.0) Prothromb Time International Ratio 1.5 (0.8-1.1) 1.5 (0.8-1.1) Sodium Level 141 mmol/L (136-145) Potassium Level 3.8 mmol/L (3.5-5.1) Chloride Level 98 mmol/L (98-107) Carbon Dioxide Level 30 mmol/L (21-32) Anion Gap 13 (6-14) Blood Urea Nitrogen 31 mg/dL (8-26) Creatinine 4.5 mg/dL (0.7-1.3) Estimated GFR (Cockcroft-Gault) 13.0 Glucose Level 98 mg/dL (70-99) Calcium Level 8.0 mg/dL (8.5-10.1) Troponin I Quantitative 0.527 ng/mL (0.000-0.055) Triglycerides Level 136 mg/dL (0-150) Cholesterol Level 171 mg/dL (0-200) LDL Cholesterol, Calculated 110 mg/dL (0-100) VLDL Cholesterol, Calculated 27 mg/dL (0-40) Non-HDL Cholesterol Calculated 137 mg/dL (0-129) HDL Cholesterol 34 mg/dL (40-60) Cholesterol/HDL Ratio 5.0 Thyroid Stimulating Hormone (TSH) 9.730 uIU/mL (0.358-3.74) O2 Saturation 97 % (92-99) Arterial Blood pH 7.36 (7.35-7.45) Arterial Blood pCO2 at Patient Temp 49 mmHg (35-46) Arterial Blood pO2 at Patient Temp 98 mmHg (65-108) Arterial Blood HCO3 27 mmol/L (21-28) Arterial Blood Base Excess 1 mmol/L (-3-3) FiO2 30 Laboratory Tests Test 11/27/19 07:50 Prothrombin Time 18.0 SEC (11.7-14.0) Prothromb Time International Ratio 1.5 (0.8-1.1) Microbiology 11/25/19 Blood Culture - Preliminary, Resulted NO GROWTH AFTER 2 DAYS 11/25/19 Nose/Throat Culture - Final, Complete 11/25/19 - Final, Complete Medications Current Medications Sodium Bicarbonate (Sodium Bicarb Adult 8.4% Syr) 50 meq 1X ONCE IV Last administered on 11/25/19at 09:46; Start 11/25/19 at 09:00; Stop 11/25/19 at 09:01; Status DC Calcium Gluconate (Calcium Gluconate) 1,000 mg 1X ONCE IVP Last administered on 11/25/19at 09:46; Start 11/25/19 at 09:00; Stop 11/25/19 at 09:01; Status DC Norepinephrine Bitartrate 8 mg/ Dextrose 258 ml @ 13.545 mls/ hr 1X ONCE IV Last administered on 11/25/19at 09:48; Start 11/25/19 at 09:30; Stop 11/26/19 at 04:32; Status DC Albuterol/ Ipratropium (Duoneb) 3 ml RTQID NEB Last administered on 11/26/19at 08:18; Start 11/25/19 at 12:00; Stop 11/26/19 at 11:59; Status DC Info (PHARMACY MONITORING -- do not chart) 1 each PRN DAILY PRN MC SEE COM MENTS; Start 11/25/19 at 10:15; Stop 11/27/19 at 09:07; Status DC Info (PHARMACY MONITORING -- do not chart) 1 each PRN DAILY PRN MC SEE COMMENTS; Start 11/25/19 at 10:15; Status UNV Darbepoetin Shai (ARANESP for DIALYSIS PTS) 60 mcg WEEKLYHS SQ Last a dministered on 11/25/19at 20:49; Start 11/25/19 at 21:00 Piperacillin Sod/ Tazobactam Sod (Zosyn Per Pharmacy) 1 each PRN DAILY PRN MC SEE COMMENTS; Start 11/25/19 at 17:30 Vancomycin HCl (Vanco Per Pharmacy) 1 each PRN DAILY PRN MC SEE COMMENTS; Start 11/25/19 at 17:30; Status UNV Albuterol Sulfate (Ventolin Neb Soln) 2.5 mg PRN Q2HR PRN NEB DYSPNEA; Start 11/25/19 at 17:30 Piperacillin Sod/ Tazobactam Sod 2.25 gm/Sodium Chloride 50 ml @ 100 mls/hr Q8HRS IV Last administered on 11/27/19at 12:51; Start 11/25/19 at 18:00 Linezolid/Dextrose 300 ml @ 300 mls/hr Q12HR IV Last administered on 11/27/19at 08:48; Start 11/25/19 at 18:00 Warfarin Sodium (Coumadin Per Pharmacy) 1 each PRN DAILY PRN MC SEE COMMENTS Last administered on 11/27/19at 09:10; Start 11/25/19 at 18:45 Warfarin Sodium (Coumadin) 2.5 mg 1X WARF ONCE PO Last administered on 11/26/19at 17:42; Start 11/26/19 at 16:00; Stop 11/26/19 at 16:01; Status DC Norepinephrine Bitartrate 8 mg/ Dextrose 258 ml @ 13.39 mls/ hr CONT PRN IV PER PROTOCOL Last administered on 11/27/19at 12:52; Start 11/25/19 at 20:30 Sodium Chloride 1,000 ml @ 1,000 mls/hr Q1H PRN IV hypotension; Start 11/26/19 at 07:32; Stop 11/26/19 at 13:31; Status DC Diphenhydramine HCl (Benadryl) 25 mg 1X PRN PRN IV ITCHING; Start 11/26/19 at 07:45; Stop 11/27/19 at 07:44; Status DC Diphenhydramine HCl (Benadryl) 25 mg 1X PRN PRN IV ITCHING; Start 11/26/19 at 07:45; Stop 11/27/19 at 07:44; Status DC Sodium Chloride 1,000 ml @ 400 mls/hr Q2H30M PRN IV PATENCY; Start 11/26/19 at 07:32; Stop 11/26/19 at 19:31; Status DC Info (PHARMACY MONITORING -- do not chart) 1 each PRN DAILY PRN MC SEE COMMENTS; Start 11/26/19 at 07:45 Albuterol/ Ipratropium (Duoneb) 3 ml RTQID NEB Last administered on 11/27/19at 13:51; Start 11/26/19 at 12:00 Amiodarone HCl (Cordarone) 200 mg DAILY PO Last administered on 11/27/19at 08:49; Start 11/27/19 at 09:00 Clopidogrel Bisulfate (Plavix) 75 mg DAILY PO Last administered on 11/27/19at 08:48; Start 11/27/19 at 09:00 Metoprolol Tartrate (Lopressor) 50 mg BID PO Last administered on 11/26/19at 20:21; Start 11/26/19 at 21:00 Warfarin Sodium (Coumadin) 4 mg 1X WARF ONCE PO Last administered on 11/27/19at 16:54; Start 11/27/19 at 16:00; Stop 11/27/19 at 16:01; Status DC Lactobacillus Rhamnosus (Culturelle) 1 cap BID PO ; Start 11/27/19 at 21:00 Sodium Chloride 1,000 ml @ 1,000 mls/hr Q1H PRN IV hypotension; Start 11/27/19 at 14:01; Stop 11/27/19 at 20:00 Albumin Human 200 ml @ 200 mls/hr 1X PRN PRN IV Hypotension; Start 11/27/19 at 14:15; Stop 11/27/19 at 20:14 Diphenhydramine HCl (Benadryl) 25 mg 1X PRN PRN IV ITCHING; Start 11/27/19 at 14:15; Stop 11/28/19 at 14:14 Diphenhydramine HCl (Benadryl) 25 mg 1X PRN PRN IV ITCHING; Start 11/27/19 at 14:15; Stop 11/28/19 at 14:14 Sodium Chloride 1,000 ml @ 400 mls/hr Q2H30M PRN IV PATENCY; Start 11/27/19 at 14:01; Stop 11/28/19 at 02:00 Info (PHARMACY MONITORING -- do not chart) 1 each PRN DAILY PRN MC SEE COMMENTS; Start 11/27/19 at 14:15 Active Scripts Active Reported Alprazolam 0.5 Mg Tablet Unknown Dose PO BID Morphine Sulfate 15 Mg Tablet 1 Tab PO BID Midodrine Hcl 10 Mg Tablet 10 Mg PO 3X/WEEK Warfarin Sodium 2.5 Mg Tablet 2.5 Mg PO DAILY Zoloft (Sertraline Hcl) 100 Mg Tablet 1.5 Tab PO DAILY Clopidogrel (Clopidogrel Bisulfate) 75 Mg Tablet 1 Tab PO DAILY Metoprolol Tartrate 50 Mg Tablet 1 Tab PO BID Amiodarone Hcl 200 Mg Tablet 1 Tab PO DAILY Vitals/I & O Vital Sign - Last 24 Hours 11/26/19 11/26/19 11/26/19 11/26/19 17:42 18:00 19:09 20:03 Temp 97.9 97.9 Pulse 62 62 65 Resp 12 16 16 B/P (MAP) 109/51 (70) 96/51 (66) 101/49 (66) Pulse Ox 98 100 O2 Delivery Room Air Room Air Room Air Room Air 11/26/19 11/26/19 11/26/19 11/26/19 20:06 20:21 21:14 21:16 Pulse 60 62 63 Resp 16 16 B/P (MAP) 99/47 (64) 98/48 119/55 (76) Pulse Ox 100 96 98 O2 Delivery Room Air Room Air Room Air 11/26/19 11/26/19 11/26/19 11/27/19 22:31 23:10 23:59 00:00 Pulse 60 62 60 Resp 16 16 16 B/P (MAP) 99/49 (66) 121/63 (82) 136/66 (89) Pulse Ox 98 97 98 O2 Delivery Room Air Room Air Room Air Room Air 11/27/19 11/27/19 11/27/19 11/27/19 01:03 02:00 03:00 04:00 Temp 97.5 97.5 Pulse 62 62 60 60 Resp 16 16 16 16 B/P (MAP) 145/53 (83) 154/74 (100) 109/43 (65) 109/43 (65) Pulse Ox 98 98 96 94 O2 Delivery Room Air Room Air Room Air Room Air 11/27/19 11/27/19 11/27/19 11/27/19 04:00 05:07 06:09 07:00 Temp 97.9 97.9 Pulse 60 60 63 Resp 16 16 18 B/P (MAP) 140/64 (89) 133/57 (82) 135/63 (87) Pulse Ox 99 97 98 O2 Delivery Room Air Room Air Room Air Room Air 11/27/19 11/27/19 11/27/19 11/27/19 08:00 08:00 08:49 08:51 Pulse 61 61 61 Resp 16 B/P (MAP) 95/43 (60) 95/43 95/43 Pulse Ox 98 O2 Delivery Room Air Room Air 11/27/19 11/27/19 11/27/19 11/27/19 09:00 09:34 10:00 11:00 Temp 97.9 97.9 Pulse 63 63 64 Resp 16 16 16 B/P (MAP) 99/43 (61) 84/43 (57) 63/43 (50) Pulse Ox 98 96 98 98 O2 Delivery Room Air Room Air Room Air Room Air 11/27/19 11/27/19 11/27/19 11/27/19 12:00 12:00 13:00 13:51 Pulse 62 59 Resp 16 16 B/P (MAP) 84/43 (57) 78/39 (52) Pulse Ox 98 100 97 O2 Delivery Room Air Room Air Room Air Room Air 11/27/19 11/27/19 11/27/19 11/27/19 14:01 15:00 16:00 16:00 Pulse 59 59 63 Resp 16 16 16 B/P (MAP) 89/43 (58) 91/43 (59) 90/57 (68) Pulse Ox 100 100 95 O2 Delivery Room Air Room Air Room Air Room Air Intake and Output 11/26/19 11/26/19 11/27/19 15:00 23:00 07:00 Intake Total 1029 ml 50 ml Output Total 0 ml 0 ml 0 ml Balance 0 ml 1029 ml 50 ml NEDA LYNCH MD Nov 27, 2019 17:13
[2019-11-27] MEDS: LACTOBACILLUS RHAMNOSUS GG 1 CAPSULE. PO SCH (22:17)
[2019-11-28] VITALS (12 sets, daily range): BP systolic 100–132; BP diastolic 51–68
[2019-11-28 05:12] LABS: PROTHROMBIN TIME PATIENT 17.4 SEC (11.7-14.0)
[2019-11-28] MEDS: PIPERACILLIN/TAZOBACTAM 2.25 GM in IV NORMAL SALINE 50ML 50 ML IV SCH (05:44)
--- NOTE | 2019-11-28 08:38 | NUR ---
Pharmacy Warfarin Dosing Note S:Pharmacy consulted to assist with anticoagulation therapy started with target INR: 2 -3 O:AMY GOVEA is a 69 year old M with Atrial Fibrillation LABS: Last INR: 1.5 Last HGB: 11.9 Last HCT: 38 Last PLT: 153 Last dose of 2.5 mg given on 11/27/19 at 1654 Previous Regimen: 2.5 mg/day Vitamin K given: N Drug Interaction Changes: Same Interacting Drug Ongoing Drug Interactions: amiodarone, Zosyn A:INR of 1.5 is below desired range. Target range for this patient is: 2 -3 P: Warfarin dose: 4 mg Today at 1600 Bridge Therapy: None Next INR due 11/29/19. Pharmacy anticoagulation service will continue to follow. ADILENE QUAN RP, 11/28/19 [id number]
[2019-11-28] MEDS: LACTOBACILLUS RHAMNOSUS GG 1 CAPSULE. PO SCH (08:41)
[2019-11-28] MEDS: CLOPIDOGREL BISULFATE 75 MG TABLET PO SCH (08:41)
[2019-11-28] MEDS: AMIODARONE HCL 200 MG TABLET. PO SCH (08:41)
[2019-11-28] MEDS: IPRATRPIUM/ALBUTEROL 0.5/2.5MG 3 ML NEBU. NEB SCH ×2 (09:22→12:35)
[2019-11-28] MEDS ORDERED: METOPROLOL TART IMMED RELEASE 25 MG TABLET. PO SCH (10:45)
--- NOTE | 2019-11-28 11:30 | NUR ---
pt sat up in chair x 30 minutes. pt weak on legs. x1 assist in transfering. pt given po lopresser as ordered by dr westbrook.
--- NOTE | 2019-11-28 11:36 | PDOC ---
Renal-Progress Notes Subjective Notes Notes NO NEW COMPLAINTS History of Present Illness Hx of present illness STABLE Vitals Vitals Vital Signs Date Time Temp Pulse Resp B/P (MAP) Pulse Ox O2 Delivery O2 Flow Rate FiO2 11/28/19 09:22 96 Room Air 11/28/19 09:00 65 18 116/68 (84) 11/28/19 08:00 98.0 98.0 Weight Weight [ ] I.O. Intake and Output Intake and Output 11/28/19 07:00 Intake Total 1183 ml Output Total 1 ml Balance 1182 ml Intake Oral 360 ml IV Total 823 ml Output Urine Total 0 ml Stool Total 1 ml Labs Labs Laboratory Tests Test 11/28/19 04:48 Prothrombin Time 17.4 SEC (11.7-14.0) Prothromb Time International Ratio 1.5 (0.8-1.1) Micro Micro Microbiology 11/25/19 Blood Culture - Preliminary, Resulted NO GROWTH AFTER 2 DAYS 11/25/19 Nose/Throat Culture - Final, Complete 11/25/19 - Final, Complete Assessment Assessment IMP CHF-ACUTE ON CHRONIC DIASTOLIC CHF ACUTE HYPOXIC RESP FAILURE HYPERKALEMIA-BETTER ANEMIA HTN ESRD NON COMPLIANCE PLAN HD TODAY UF TOLERATED ESTRELLITA STARTED ENC COMPLIANCE WILL FOLLOW KATHRIN BOUCHER MD Nov 28, 2019 11:36
--- NOTE | 2019-11-28 12:18 | PDOC ---
[facility] PROGRESS NOTE Chief Complaint Chief Complaint Resolving restaurant failure now off of BiPAP Volume overload, congestive heart failure, respiratory failure, hyperkalemia, and combination of anion gap metabolic acidosis and respiratory acidosis End-stage renal disease, on dialysis; COPD; CHF; depression; vascular disease; aortic aneurysm; dialysis shunt; and right lobectomy. History of Present Illness History of Present Illness [id number] Patient seen and examined in the ICU He is now up in the chair watching TV Seems to be doing much better Discussed with RN Reviewed chart 3 Patient seen and examined in the ICU He is now off BiPAP a little more alert but very weak Discussed with RN He is off of his levo fed now also [id number] Patient seen and examined in the ICU He remains critically ill on BiPAP Discussed with RN Currently on dialysis as I am examining him Chart reviewed Discussed with dialysis nurse as well Vitals/I&O Vitals/I&O: Vital Signs Date Time Temp Pulse Resp B/P (MAP) Pulse Ox O2 Delivery O2 Flow Rate FiO2 11/28/19 11:36 65 116/68 11/28/19 11:01 97.9 97.9 11/28/19 11:00 18 97 Room Air I & O 11/27/19 11/27/19 11/28/19 15:00 23:00 07:00 Intake Total 640 ml 193 ml 350 ml Output Total 0 ml 1 ml 0 ml Balance 640 ml 192 ml 350 ml Physical Exam General: Alert, No acute distress Heart: Regular rate Lungs: Clear Abdomen: Normal bowel sounds Extremities: Other (1+ bilateral LE ) Skin: No rashes, No significant lesion Labs Labs: Laboratory Tests Test 11/28/19 04:48 Prothrombin Time 17.4 SEC (11.7-14.0) Prothromb Time International Ratio 1.5 (0.8-1.1) Review of Systems Review of Systems: Complains of hunger Assessment and Plan Assessmemt and Plan Problems Medical Problems: (1) Acidosis, metabolic, with respiratory acidosis Status: Acute (2) Acute congestive heart failure Status: Acute (3) Acute on chronic renal failure Status: Acute (4) Respiratory failure Status: Acu Resolving respiratory failure now off BiPAP Volume overload, congestive heart failure, respiratory failure, hyperkalemia, and combination of anion gap metabolic acidosis and respiratory acidosis End-stage renal disease, on dialysis; COPD; CHF; depression; vascular disease; aortic aneurysm; dialysis shunt; and right lobectomy. Plan Hemodialysis as scheduled Transfer to medical floor BiPAP when necessary Antibiotics Cardiology following Pulmonary and nephrology are following Home meds if possible DVT prophylaxis DNR Prognosis improving a lot Transferred to medical floor Comment Review of Relevant I have reviewed the following items jesse (where applicable) has been applied. Medications: Current Medications Medications (Trade) Dose Ordered Sig/Garrick Route PRN Reason Start Time Stop Time Status Last Admin Dose Admin Warfarin Sodium (Coumadin) 4 mg 1X WARF ONCE PO 11/27/19 16:00 11/27/19 16:01 DC 11/27/19 16:54 Lactobacillus Rhamnosus (Culturelle) 1 cap BID PO 11/27/19 21:00 11/28/19 08:41 Metoprolol Tartrate (Lopressor) 25 mg BID PO 11/28/19 10:45 11/28/19 11:36 TIFFANIE LANTIGUA III DO Nov 28, 2019 12:18
--- NOTE | 2019-11-28 13:29 | PDOC ---
PULMONARY PROGRESS NOTES Subjective PT WITH NO INCREASE SOA NO CHEST PAIN Vitals Vital Signs Date Time Temp Pulse Resp B/P (MAP) Pulse Ox O2 Delivery O2 Flow Rate FiO2 11/28/19 12:35 97 Room Air 11/28/19 12:10 97.7 70 20 132/64 (86) 97.7 ROS: No Nausea, No Chest Pain, No Abdominal Pain, No Increase Cough General: Alert Lungs: Clear Cardiovascular: S1, S2 Abdomen: Soft Neuro Exam: Alert Extremities: No Edema Skin: Warm Labs Laboratory Tests Test 11/27/19 07:50 11/28/19 04:48 Prothrombin Time 18.0 SEC (11.7-14.0) 17.4 SEC (11.7-14.0) Prothromb Time International Ratio 1.5 (0.8-1.1) 1.5 (0.8-1.1) Laboratory Tests Test 11/28/19 04:48 Prothrombin Time 17.4 SEC (11.7-14.0) Prothromb Time International Ratio 1.5 (0.8-1.1) Medications Active Scripts Medications Dose Route/Sig Max Daily Dose Days Date Category Alprazolam 0.5 Mg Tablet Unknown Dose PO BID 11/25/19 Reported Morphine Sulfate 15 Mg Tablet 1 Tab PO BID 11/25/19 Reported Midodrine Hcl 10 Mg Tablet 10 Mg PO 3X/WEEK 11/25/19 Reported Warfarin Sodium 2.5 Mg Tablet 2.5 Mg PO DAILY 11/25/19 Reported Zoloft (Sertraline Hcl) 100 Mg Tablet 1.5 Tab PO DAILY 11/25/19 Reported Clopidogrel (Clopidogrel Bisulfate) 75 Mg Tablet 1 Tab PO DAILY 11/25/19 Reported Metoprolol Tartrate 50 Mg Tablet 1 Tab PO BID 11/25/19 Reported Amiodarone Hcl 200 Mg Tablet 1 Tab PO DAILY 11/25/19 Reported Impression . IMPRESSION: 1. Acute on chronic hypoxemic hypercapnic respiratory failure. 2. Acute metabolic acidosis related to renal failure. 3. End-stage renal disease, on hemodialysis; the patient missed 2 dialysis. 4. Acute on chronic heart failure. 5. Peripheral arterial disease. 6. Metabolic encephalopathy. 7. Chronic anemia. 8. HYPOTENSION IMPROVED Plan . OK TO PLACE ORAL ANTI BX OK TO DC HD PER MULU NIX MD Nov 28, 2019 13:29
--- NOTE | 2019-11-28 14:23 | PDOC ---
PROGRESS NOTES Subjective Subjective Patient seen and examined Objective Objective Vital Signs Date Time Temp Pulse Resp B/P (MAP) Pulse Ox O2 Delivery O2 Flow Rate FiO2 11/28/19 12:35 97 Room Air 11/28/19 12:10 97.7 70 20 132/64 (86) 97.7 11/26/19 16:03 2.0 Intake and Output 11/28/19 07:00 Intake Total 1183 ml Output Total 1 ml Balance 1182 ml Intake Oral 360 ml IV Total 823 ml Output Urine Total 0 ml Stool Total 1 ml Physical Exam Abdomen: Normal bowel sounds Heart: Regular rate General: mild distress Lungs: Other (mildly decreased breath sounds) Assessment Assessment Problems Medical Problems: (1) Acidosis, metabolic, with respiratory acidosis Status: Acute (2) Acute congestive heart failure Status: Acute (3) Acute on chronic renal failure Status: Acute (4) Respiratory failure Status: Acute Acute on chronic systolic heart failure. Fluid management as per hemodialysis. HTN improved today. He looks and feels better. Echocardiogram shows an ejection fraction of 55-60% with moderate mitral valve stenosis and moderate pulmonary hypertension with a PA P of 50 mmHg. Acute respiratory failure. Improving. Continuing present treatment. End-stage renal disease. Hemodialysis as per the renal service. Minimally elevated troponin. Demand ischemia. Continue as above. Paroxysmal atrial fibrillation. On amiodarone and anticoagulation. Sick sinus syndrome. Pacemaker in place. We'll continue to monitor. Comment Review of Relevant I have reviewed the following items jesse (where applicable) has been applied. Labs Laboratory Tests Test 11/27/19 07:50 11/28/19 04:48 Prothrombin Time 18.0 SEC (11.7-14.0) 17.4 SEC (11.7-14.0) Prothromb Time International Ratio 1.5 (0.8-1.1) 1.5 (0.8-1.1) Laboratory Tests Test 11/28/19 04:48 Prothrombin Time 17.4 SEC (11.7-14.0) Prothromb Time International Ratio 1.5 (0.8-1.1) Microbiology 11/25/19 Blood Culture - Preliminary, Resulted NO GROWTH AFTER 3 DAYS 11/25/19 Nose/Throat Culture - Final, Complete 11/25/19 - Final, Complete Medications Current Medications Sodium Bicarbonate (Sodium Bicarb Adult 8.4% Syr) 50 meq 1X ONCE IV Last administered on 11/25/19at 09:46; Start 11/25/19 at 09:00; Stop 11/25/19 at 09:01; Status DC Calcium Gluconate (Calcium Gluconate) 1,000 mg 1X ONCE IVP Last administered on 11/25/19at 09:46; Start 11/25/19 at 09:00; Stop 11/25/19 at 09:01; Status DC Norepinephrine Bitartrate 8 mg/ Dextrose 258 ml @ 13.545 mls/ hr 1X ONCE IV Last administered on 11/25/19at 09:48; Start 11/25/19 at 09:30; Stop 11/26/19 at 04:32; Status DC Albuterol/ Ipratropium (Duoneb) 3 ml RTQID NEB Last administered on 11/26/19at 08:18; Start 11/25/19 at 12:00; Stop 11/26/19 at 11:59; Status DC Info (PHARMACY MONITORING -- do not chart) 1 each PRN DAILY PRN MC SEE COMMENTS; Start 11/25/19 at 10:15; Stop 11/27/19 at 09:07; Status DC Info (PHARMACY MONITORING -- do not chart) 1 each PRN DAILY PRN MC SEE COMMENTS; Start 11/25/19 at 10:15; Status UNV Darbepoetin Shai (ARANESP for DIALYSIS PTS) 60 mcg WEEKLYHS SQ Last administered on 11/25/19at 20:49; Start 11/25/19 at 21:00 Piperacillin Sod/ Tazobactam Sod (Zosyn Per Pharmacy) 1 each PRN DAILY PRN MC SEE COMMENTS; Start 11/25/19 at 17:30 Vancomycin HCl (Vanco Per Pharmacy) 1 each PRN DAILY PRN MC SEE COMMENTS; Start 11/25/19 at 17:30; Status UNV Albuterol Sulfate (Ventolin Neb Soln) 2.5 mg PRN Q2HR PRN NEB DYSPNEA; Start 11/25/19 at 17:30 Piperacillin Sod/ Tazobactam Sod 2.25 gm/Sodium Chloride 50 ml @ 100 mls/hr Q8HRS IV Last administered on 11/28/19at 05:44; Start 11/25/19 at 18:00 Linezolid/Dextrose 300 ml @ 300 mls/hr Q12HR IV Last administered on 11/28/19at 08:41; Start 11/25/19 at 18:00 Warfarin Sodium (Coumadin Per Pharmacy) 1 each PRN DAILY PRN MC SEE COMMENTS Last administered on 11/28/19at 08:38; Start 11/25/19 at 18:45 Warfarin Sodium (Coumadin) 2.5 mg 1X WARF ONCE PO Last administered on 11/26/19at 17:42; Start 11/26/19 at 16:00; Stop 11/26/19 at 16:01; Status DC Norepinephrine Bitartrate 8 mg/ Dextrose 258 ml @ 13.39 mls/ hr CONT PRN IV PER PROTOCOL Last administered on 11/27/19at 12:52; Start 11/25/19 at 20:30 Sodium Chloride 1,000 ml @ 1,000 mls/hr Q1H PRN IV hypotension; Start 11/26/19 at 07:32; Stop 11/26/19 at 13:31; Status DC Diphenhydramine HCl (Benadryl) 25 mg 1X PRN PRN IV ITCHING; Start 11/26/19 at 07:45; Stop 11/27/19 at 07:44; Status DC Diphenhydramine HCl (Benadryl) 25 mg 1X PRN PRN IV ITCHING; Start 11/26/19 at 07:45; Stop 11/27/19 at 07:44; Status DC Sodium Chloride 1,000 ml @ 400 mls/hr Q2H30M PRN IV PATENCY; Start 11/26/19 at 07:32; Stop 11/26/19 at 19:31; Status DC Info (PHARMACY MONITORING -- do not chart) 1 each PRN DAILY PRN MC SEE COMMENTS; Start 11/26/19 at 07:45; Stop 11/28/19 at 08:31; Status DC Albuterol/ Ipratropium (Duoneb) 3 ml RTQID NEB Last administered on 11/28/19at 12:35; Start 11/26/19 at 12:00 Amiodarone HCl (Cordarone) 200 mg DAILY PO Last administered on 11/28/19at 08:41; Start 11/27/19 at 09:00 Clopidogrel Bisulfate (Plavix) 75 mg DAILY PO Last administered on 11/28/19at 08:41; Start 11/27/19 at 09:00 Metoprolol Tartrate (Lopressor) 50 mg BID PO Last administered on 11/27/19at 23:19; Start 11/26/19 at 21:00; Stop 11/28/19 at 10:45; Status DC Warfarin Sodium (Coumadin) 4 mg 1X WARF ONCE PO Last administered on 11/27/19at 16:54; Start 11/27/19 at 16:00; Stop 11/27/19 at 16:01; Status DC Lactobacillus Rhamnosus (Culturelle) 1 cap BID PO Last administered on 11/28/19at 08:41; Start 11/27/19 at 21:00 Sodium Chloride 1,000 ml @ 1,000 mls/hr Q1H PRN IV hypotension; Start 11/27/19 at 14:01; Stop 11/27/19 at 20:00; Status DC Albumin Human 200 ml @ 200 mls/hr 1X PRN PRN IV Hypotension; Start 11/27/19 at 14:15; Stop 11/27/19 at 20:14; Status DC Diphenhydramine HCl (Benadryl) 25 mg 1X PRN PRN IV ITCHING; Start 11/27/19 at 14:15; Stop 11/28/19 at 14:14; Status DC Diphenhydramine HCl (Benadryl) 25 mg 1X PRN PRN IV ITCHING; Start 11/27/19 at 14:15; Stop 11/28/19 at 14:14; Status DC Sodium Chloride 1,000 ml @ 400 mls/hr Q2H30M PRN IV PATENCY; Start 11/27/19 at 14:01; Stop 11/28/19 at 02:00; Status DC Info (PHARMACY MONITORING -- do not chart) 1 each PRN DAILY PRN MC OLUIS OSHEA; Start 11/27/19 at 14:15 Warfarin Sodium (Coumadin) 4 mg 1X WARF ONCE PO ; Start 11/28/19 at 16:00; Stop 11/28/19 at 16:01 Metoprolol Tartrate (Lopressor) 25 mg BID PO Last administered on 11/28/19at 11:36; Start 11/28/19 at 10:45 Active Scripts Active Reported Alprazolam 0.5 Mg Tablet Unknown Dose PO BID Morphine Sulfate 15 Mg Tablet 1 Tab PO BID Midodrine Hcl 10 Mg Tablet 10 Mg PO 3X/WEEK Warfarin Sodium 2.5 Mg Tablet 2.5 Mg PO DAILY Zoloft (Sertraline Hcl) 100 Mg Tablet 1.5 Tab PO DAILY Clopidogrel (Clopidogrel Bisulfate) 75 Mg Tablet 1 Tab PO DAILY Metoprolol Tartrate 50 Mg Tablet 1 Tab PO BID Amiodarone Hcl 200 Mg Tablet 1 Tab PO DAILY Vitals/I & O Vital Sign - Last 24 Hours 11/27/19 11/27/19 11/27/19 11/27/19 15:00 16:00 16:00 17:00 Temp 98.1 98.1 Pulse 59 63 70 Resp 16 16 16 B/P (MAP) 91/43 (59) 90/57 (68) 86/44 (58) Pulse Ox 100 95 98 O2 Delivery Room Air Room Air Room Air Room Air 11/27/19 11/27/19 11/27/19 11/27/19 17:10 18:00 19:00 20:00 Pulse 76 60 Resp 16 20 B/P (MAP) 94/42 (59) 85/43 (57) Pulse Ox 97 98 95 O2 Delivery Room Air Room Air Room Air Room Air 11/27/19 11/27/19 11/27/19 11/27/19 20:00 20:35 21:00 22:00 Temp 97.9 97.9 Pulse 61 66 62 Resp 21 11 12 B/P (MAP) 87/50 (62) 101/51 (68) 105/50 (68) Pulse Ox 96 97 95 95 O2 Delivery Room Air Room Air Room Air Room Air 11/27/19 11/27/19 11/27/19 11/28/19 23:00 23:19 23:59 00:00 Temp 97.8 97.8 Pulse 60 61 60 Resp 12 12 B/P (MAP) 95/44 (61) 95/44 106/51 (69) Pulse Ox 95 95 O2 Delivery Room Air Room Air Room Air 11/28/19 11/28/19 11/28/19 11/28/19 01:00 02:00 03:00 04:00 Temp 97.9 97.9 Pulse 67 59 64 62 Resp 12 16 16 14 B/P (MAP) 101/52 (68) 116/59 (78) 100/53 (69) 115/52 (73) Pulse Ox 95 95 94 91 O2 Delivery Room Air Room Air Room Air Room Air 11/28/19 11/28/19 11/28/19 11/28/19 04:00 05:00 06:00 07:00 Pulse 60 65 61 Resp 14 12 18 B/P (MAP) 119/60 (79) 103/51 (68) 113/52 (72) Pulse Ox 91 95 97 O2 Delivery Room Air Room Air Room Air Room Air 11/28/19 11/28/19 11/28/19 11/28/19 07:59 08:00 08:41 09:00 Temp 98.0 98.0 Pulse 65 61 65 Resp 18 18 B/P (MAP) 112/58 (76) 113/52 116/68 (84) Pulse Ox 96 98 O2 Delivery Room Air Room Air Room Air 11/28/19 11/28/19 11/28/19 11/28/19 09:22 11:00 11:01 11:36 Temp 97.9 97.9 Pulse 64 65 Resp 18 B/P (MAP) 126/64 (84) 116/68 Pulse Ox 96 97 O2 Delivery Room Air Room Air 11/28/19 11/28/19 12:10 12:35 Temp 97.7 97.7 Pulse 70 Resp 20 B/P (MAP) 132/64 (86) Pulse Ox 96 97 O2 Delivery Room Air Room Air Intake and Output 11/27/19 11/27/19 11/28/19 15:00 23:00 07:00 Intake Total 640 ml 193 ml 350 ml Output Total 0 ml 1 ml 0 ml Balance 640 ml 192 ml 350 ml NEDA LYNCH MD Nov 28, 2019 14:23
[2019-11-28] MEDS ORDERED: IV NORMAL SALINE 1000ML BAG 1,000 ML IV PRN ×2 (15:06)
[2019-11-28] MEDS ORDERED: diphenhydrAMINE 50 MG/ML VIAL IV PRN ×2 (15:15)
[2019-11-28] MEDS ORDERED: DIALYSIS PATIENT. MC PRN (15:15)
[2019-11-28] MEDS ORDERED: ACETAMINOPHEN 500 MG TABLET PO PRN (15:15)
[2019-11-28] MEDS ORDERED: WARFARIN 4 MG TABLET. PO ONE (16:00)
[2019-11-28] MEDS ORDERED: METO25TA4 PO (16:52)
[2019-11-28] MEDS ORDERED: DOXY100C2 PO (16:54)
--- NOTE | 2019-11-28 17:20 | DS ---
DATE OF DISCHARGE: 11/28/2019 DATE OF DISCHARGE: 11/28/2019 ADMISSION DIAGNOSES: 1. Volume overload secondary to missing dialysis. 2. Fulminant respiratory failure and requiring BiPAP. 3. Diabetes. 4. Hypertension. 5. End-stage renal disease. DISCHARGE DIAGNOSES: 1. Resolving volume overload. 2. Resolving respiratory failure. CONSULTS: Pulmonary Medicine and Nephrology. PROCEDURES: Dialysis. HOSPITAL COURSE: The patient is a pleasant elderly male who presented in fulminant respiratory failure because of his volume overload because he missed his dialysis. He was admitted to the ICU on BiPAP. We gave him empiric IV antibiotics. We did consult Nephrology and Pulmonary and got him dialyzed. Over the past couple of days, he has returned to his baseline. This morning, while I saw him and examined, he was watching TV, smiling, and doing great. We plan to discharge him home with close outpatient followup. DISPOSITION: Home. ACTIVITY: As tolerated. DIET: Renal. MEDICATIONS: Please see the MRAD. TOTAL TIME: 32 minutes. TIFFANIE LANTIGUA DO DR: [email or web address]/[email or web address] JOB#: [id number] / [id number]
--- NOTE | 2019-11-28 17:30 | NUR ---
Called family to notify of discharge. Family reports that she is not able to drive at night. Daughter Anitra, request stop dialysis now and have patient ready. Called ANDRIY Mcdonald and related family request.
--- NOTE | 2019-11-28 18:20 | NUR ---
Discharge instructions given to patient and family. PIV and heart monitor removed. Escorted patient per wheelchair into a private vehicle.
== END 2019-11-28 18:20 | disposition home or self-care (01) | DRG 291 ==
LOC: ER 07:19 → 1 WEST ICU 09:12 → 2 NORTH 11-28 11:52
PROVIDERS: ADMIT Internal Medicine; ATTEND Internal Medicine
PROC: 5A09357 Assistance with Respiratory Ventilation, Less than 24 Consecutive Hours, Continuous Positive Airway Pressure (ICD-10-PCS; principal; 2019-11-25)
PROC: 5A1D70Z Performance of Urinary Filtration, Intermittent, Less than 6 Hours Per Day (ICD-10-PCS; 2019-11-25)
PROC: 5A1D70Z Performance of Urinary Filtration, Intermittent, Less than 6 Hours Per Day (ICD-10-PCS; 2019-11-26)
PROC: 5A09357 Assistance with Respiratory Ventilation, Less than 24 Consecutive Hours, Continuous Positive Airway Pressure (ICD-10-PCS; 2019-11-26)
PROC: 5A1D70Z Performance of Urinary Filtration, Intermittent, Less than 6 Hours Per Day (ICD-10-PCS; 2019-11-27)
PROC: 5A1D70Z Performance of Urinary Filtration, Intermittent, Less than 6 Hours Per Day (ICD-10-PCS; 2019-11-28)
DX: I13.2 Hypertensive heart and chronic kidney disease with heart failure and with stage 5 chronic kidney disease, or end stage renal disease (principal); J96.21 Acute and chronic respiratory failure with hypoxia; G93.41 Metabolic encephalopathy; I50.43 Acute on chronic combined systolic (congestive) and diastolic (congestive) heart failure; N18.6 End stage renal disease; J96.22 Acute and chronic respiratory failure with hypercapnia; N17.9 Acute kidney failure, unspecified; I24.8 Other forms of acute ischemic heart disease; E87.4 Mixed disorder of acid-base balance; E87.5 Hyperkalemia; E11.22 Type 2 diabetes mellitus with diabetic chronic kidney disease; E11.51 Type 2 diabetes mellitus with diabetic peripheral angiopathy without gangrene; F32.9 Major depressive disorder, single episode, unspecified; J44.9 Chronic obstructive pulmonary disease, unspecified; I49.5 Sick sinus syndrome; I48.0 Paroxysmal atrial fibrillation; I27.20 Pulmonary hypertension, unspecified; I05.0 Rheumatic mitral stenosis; D64.9 Anemia, unspecified; Z99.2 Dependence on renal dialysis; Z82.49 Family history of ischemic heart disease and other diseases of the circulatory system; Z86.79 Personal history of other diseases of the circulatory system; Z83.3 Family history of diabetes mellitus; Z87.891 Personal history of nicotine dependence; Z91.19 Patient's noncompliance with other medical treatment and regimen; Z88.8 Allergy status to other drugs, medicaments and biological substances; K59.09 Other constipation
CPT/HCPCS: 36415; 36600; 71045; 80048; 80053; 80061; 82805; 83605; 83880; 84443; 84484; 85025; 85027; 85610; 87040; 87070; 87804; 87880; 93005; 93306; 94640; 94660; 96365; 96375; J0610; J0882; J2020; J2543; J3490; J7060; 99291-25; G0378